=== PATIENT | male | born 1980 | race Caucasian/White ===

== ENCOUNTER 2019-01-13 20:33 | Inpatient (IN) | payer BC ==
[2019-01-13] MEDS ORDERED: KETOROLAC 30 MG/ML 1 ML VIAL IVP STA (21:14)
[2019-01-13] MEDS ORDERED: ONDANSETRON 4 MG/2 ML VIAL IVP STA (21:15)
--- NOTE | 2019-01-13 21:18 | ED ---
Abdominal Pain HPI - General Chief Complaint: Abdominal Pain Stated Complaint: Abd Pain Time Seen by Provider: 01/13/19 21:01 Source: patient Mode of arrival: ambulatory Limitations: no limitations - History of Present Illness Initial Comments: Patient is a 38-year-old male presenting to emergency Department with abdominal pain. Patient reports he developed sudden onset of pain approximately 6 hours ago in the right flank region and migrated to the right lower quadrant. Patient reports sudden onset of nausea vomiting. Patient reports diarrhea but states that is his baseline due to a cholecystectomy. Patient denies hemoptysis, hematuria, hematochezia or melena. Patient reports the pain is a 5 and colicky in nature. Patient reports the pain is alleviated when sitting up and exacerbated when laying supine and flexing the right hip. Patient denies taking medication to alleviate the symptoms. - Related Data Home Medications Medication Instructions Recorded Confirmed No Known Home Medications 01/13/19 01/13/19 Allergies Allergy/AdvReac Type Severity Reaction Status Date / Time No Known Allergies Allergy Verified 01/13/19 21:41 Review of Systems ROS Statement: Those systems with pertinent positive or pertinent negative responses have been documented in the HPI. ROS Other: All systems not noted in ROS Statement are negative. Past Medical History Past Medical History: No Reported History Past Surgical History: No Surgical Hx Reported Past Psychological History: No Psychological Hx Reported Smoking Status: Current every day smoker Past Alcohol Use History: Daily Past Drug Use History: None Reported General Exam - General Exam Comments Initial Comments: General: Well-developed well-nourished distress HEENT: Normocephalic/atraumatic, PERLL, pharynx erythema, swallowing well, EAC no erythema, no exudates, TM clear, no cervical lymph nodes Neck: Supple, nontender, trachea midline Chest/Lungs: Normal respirations, no signs of respiratory distress clear to auscultation bilaterally no wheezes, rales, rhonchi Cardiac: Regular rate and rhythm, normal S1-S2, no murmurs rubs or gallops Abdomen/GI: Right lower quadrant pain, no guarding, positive bony point tenderness, positive psoas sign, positive obturator sign, positive Rovsing sign, normal bowel sounds, right flank pain. Musculoskeletal: Nontender, full range of motion, no edema, strength equal bi laterally Skin: Warmth, no rashes or lesions, no cyanosis or diaphoresis Neurologic: AAO x 3, CN 2-12 intact, Psychiatric: Mood and affect normal, judgment normal Limitations: no limitations Course Vital Signs 01/13/19 20:49 Temperature 98.3 F Pulse Rate 123 H Respiratory 17 Rate Blood Pressure 164/103 O2 Sat by Pulse 98 Oximetry Medical Decision Making - Medical Decision Making Patient is a 38-year-old male presents emergency Department with abdominal pain. CBC is showing mild leukocytosis. CMP is unremarkable. UA is showing mild hematuria. KUB is unremarkable. CT of abdomen and pelvis with contrast is indicated of an abnormal asymmetric renal enhancement with large nephrographic defect involving the right kidney appearance of which is most suspicious for renal infarction. Pyelonephritis could be a possibility but not clinically related to the urinalysis due to no signs of leukocyte esterase, nitrates or white blood cells. On reevaluation patient reports the pain has increased in severity for which she was given morphine. Dr. Hughes spoke with the admitting physician. Patient will be admitted for further medical management. At this point care will be transferred to Dr. Hughes. - Lab Data Result diagrams: 01/13/19 21:22 01/13/19 21:22 Lab Results 01/13/19 01/13/19 01/13/19 Range/Units 21:22 21:22 21:30 WBC 10.9 H (3.8-10.6) k/uL RBC 5.56 (4.30-5.90) m/uL Hgb 16.4 (13.0-17.5) gm/dL Hct 47.3 (39.0-53.0) % MCV 85.1 (80.0-100.0) fL MCH 29.5 (25.0-35.0) pg MCHC 34.7 (31.0-37.0) g/dL RDW 14.0 (11.5-15.5) % Plt Count 232 (150-450) k/uL Neutrophils % 74 % Lymphocytes % 17 % Monocytes % 5 % Eosinophils % 2 % Basophils % 1 % Neutrophils # 8.0 H (1.3-7.7) k/uL Lymphocytes # 1.9 (1.0-4.8) k/uL Monocytes # 0.5 (0-1.0) k/uL Eosinophils # 0.2 (0-0.7) k/uL Basophils # 0.1 (0-0.2) k/uL Sodium 143 (137-145) mmol/L Potassium 4.1 (3.5-5.1) mmol/L Chloride 108 H (98-107) mmol/L Carbon Dioxide 25 (22-30) mmol/L Anion Gap 10 mmol/L BUN 10 (9-20) mg/dL Creatinine 0.93 (0.66-1.25) mg/dL Est GFR (CKD-EPI)AfAm >90 (>60 ml/min/1.73 sqM) Est GFR (CKD-EPI)NonAf >90 (>60 ml/min/1.73 sqM) Glucose 113 H (74-99) mg/dL Calcium 9.6 (8.4-10.2) mg/dL Total Bilirubin 0.4 (0.2-1.3) mg/dL AST 38 (17-59) U/L ALT 54 (21-72) U/L Alkaline Phosphatase 57 (38-126) U/L Total Protein 8.3 H (6.3-8.2) g/dL Albumin 5.0 (3.5-5.0) g/dL Amylase 71 (30-110) U/L Lipase 62 (23-300) U/L Urine Color Yellow Urine Appearance Clear (Clear) Urine pH 5.5 (5.0-8.0) Ur Specific Bath 1.024 (1.001-1.035) Urine Protein 1+ H (Negative) Urine Glucose (UA) Negative (Negative) Urine Ketones Trace H (Negative) Urine Blood Moderate H (Negative) Urine Nitrite Negative (Negative) Urine Bilirubin Negative (Negative) Urine Urobilinogen 2.0 (<2.0) mg/dL Ur Leukocyte Esterase Negative (Negative) Urine RBC 7 H (0-5) /hpf Urine WBC 2 (0-5) /hpf Urine Mucus Occasional H (None) /hpf Disposition Clinical Impression: Abdominal pain Disposition: ADMITTED IP TO THIS [facility] Condition: Stable Instructions (If sedation given, give patient instructions): Abdominal Pain (ED) Additional Instructions: Patient will be admitted for further management. Is patient prescribed a controlled substance at d/c from ED?: No Referrals: Shanice Jean DO [Primary Care Provider] - 1-2 days Time of Disposition: 00:15
[2019-01-13 21:38] LABS: Basophils # (A) 0.1 k/uL (0-0.2); Basophils % (A) 1 %; Eosinophils # (A) 0.2 k/uL (0-0.7); Eosinophils % (A) 2 %; HCT 47.3 % (39.0-53.0); HGB 16.4 gm/dL (13.0-17.5); Lymphocytes # (A) 1.9 k/uL (1.0-4.8); Lymphocytes % (A) 17 %; MCH 29.5 pg (25.0-35.0); MCHC 34.7 g/dL (31.0-37.0); MCV 85.1 fL (80.0-100.0); Mean Platelet Volume 8.2; Monocytes # (A) 0.5 k/uL (0-1.0); Monocytes % (A) 5 %; Neutrophils % (A) 74 %; Platelet Count 232 k/uL (150-450); RBC 5.56 m/uL (4.30-5.90); WBC 10.9 k/uL (3.8-10.6)
[2019-01-13 21:41] LABS: ALT 54 U/L (21-72); AST 38 U/L (17-59); African American GFR (CKD) >90 (>60 ml/min/1.73 sqM); Alkaline Phosphatase 57 U/L (38-126); Amylase 71 U/L (30-110); Anion Gap 10 mmol/L; Blood Urea Nitrogen 10 mg/dL (9-20); Calcium 9.6 mg/dL (8.4-10.2); Carbon Dioxide 25 mmol/L (22-30); Chloride 108 mmol/L (98-107); Glucose 113 mg/dL (74-99); Lipase 62 U/L (23-300); Potassium 4.1 mmol/L (3.5-5.1); Sodium 143 mmol/L (137-145); Total Bilirubin 0.4 mg/dL (0.2-1.3); Total Protein 8.3 g/dL (6.3-8.2)
--- NOTE | 2019-01-13 21:43 | XR ---
EXAMINATION TYPE: XR KUB DATE OF EXAM: 01/13/2019 COMPARISON: NONE HISTORY: Abdominal pain TECHNIQUE: 2 views FINDINGS: There are clips from cholecystectomy. Bowel gas pattern is normal. There is no sign of inte stinal obstruction or pneumoperitoneum. Fecal pattern is normal. Lung bases are clear. There are no p athologic calcifications over the kidneys. IMPRESSION: Nonacute abdomen.
[2019-01-13 21:46] LABS: Appearance,Urine Clear (Clear); Bilirubin,Urine Negative (Negative); Blood,Urine Moderate (Negative); Color,Urine Yellow; Glucose,Urine (UA) Negative (Negative); Ketones,Urine Trace (Negative); Leukocyte Esterase,Urine Negative (Negative); Mucus,Urine Occasional /hpf; Nitrite,Urine Negative (Negative); PH, Urine 5.5 (5.0-8.0); Protein,Urine 1+ (Negative); RBC,Urine 7 /hpf (0-5); Specific Gravity,Urine 1.024 (1.001-1.035); WBC,Urine 2 /hpf (0-5)
--- NOTE | 2019-01-13 23:27 | CT ---
EXAM: CT Abdomen and Pelvis With Intravenous Contrast CLINICAL HISTORY: ITS.REASON CT Reason: Pain TECHNIQUE: Axial computed tomography images of the abdomen and pelvis with intravenous contrast. CTDI is 15.4 mGy and DLP is 709.9 mGy-cm. This CT exam was performed using one or more of the following dose reduction techniques: automated exposure control, adjustment of the mA and/or kV according to patient size, and/or use of iterative reconstruction technique. COMPARISON: Abdominal radiographs 01/13/2019 FINDINGS: Lung bases: Imaged lung bases are clear. ABDOMEN: Liver: Mild hepatomegaly and evidence of hepatic fatty infiltration. Gallbladder and bile ducts: Status post previous cholecystectomy. No evidence of biliary dilatation. Pancreas: Pancreas is unremarkable. Spleen: Spleen is unremarkable. Adrenals: No adrenal masses. Kidneys and ureters: Kidneys are of normal size bilaterally. Abnormal asymmetric right renal enhancement. Large nephrographic defect involves right kidney including upper pole, mid zone and inferior pole having wedgelike configuration and extending to renal cortex. Left kidney demonstrates normal enhancement. No significant perinephric stranding. No evidence of renal calculi or hydronephrosis. Stomach and bowel: No evidence of bowel obstruction or pneumoperitoneum. Scattered colonic diverticulosis. Colon is nondistended limiting colonic dilation. PELVIS: Appendix: Normal-appearing appendix identified in the right lower quadrant. Bladder: Urinary bladder is nondistended. No bladder calculi. Reproductive: Unremarkable as visualized. ABDOMEN and PELVIS: Intraperitoneal space: See above. Bones/joints: No acute bony abnormalities. Vasculature: No abdominal aortic aneurysm. Lymph nodes: No evidence of lymphadenopathy. IMPRESSION: Abnormal asymmetric renal enhancement with large nephrographic defect involving right kidney appearance of which most suspicious for renal infarction. Pyelonephritis would be differential possibility. Clinical correlation with urinalysis recommended. No evidence of appendicitis. Mild hepatomegaly and hepatic fatty infiltration. Previous cholecystectomy. <MYCVCSECTION> Critical Value Communications 01/13/19 23:27 Call Doctor Regarding Other, called Dr. Hughes on 01/13 23:27 (-04:00)
[2019-01-13] MEDS ORDERED: HEPARIN SODIUM,PORCINE 5,000 UNIT/ML 1 ML VIAL IV PRN (23:28)
[2019-01-13] MEDS ORDERED: HEPARIN SODIUM,PORCINE 10,000 UNIT/ML 1 ML VIAL IV ONE (23:28)
[2019-01-13] MEDS ORDERED: MORPHINE SULFATE 4 MG/ML SYRINGE IVP STA (23:59)
[2019-01-14] LABS: INR 0.9 (<1.2); Partial Thromboplastin Time 21.9 sec (22.0-30.0)
[2019-01-14] MEDS: HEPARIN SOD,PORK IN 0.45% NACL 25,000 UNIT in 0.45% NACL 1 250ML.BAG IV SCH ×2 (00:15→17:12)
[2019-01-14] MEDS ORDERED: NALOXONE 0.4 MG/ML 1 ML VIAL IV PRN (02:35)
[2019-01-14] MEDS: oxyCODONE-APAP 5-325MG 1 EACH TAB PO PRN ×5 (03:21→21:07)
[2019-01-14] MEDS: ONDANSETRON 4 MG/2 ML VIAL IVP PRN ×3 (03:22→19:22)
[2019-01-14] MEDS: MORPHINE SULFATE 4 MG/ML SYRINGE IV PRN ×4 (04:37→19:21)
[2019-01-14 05:45] LABS: Basophils # (A) 0.1 k/uL (0-0.2); Basophils % (A) 1 %; Eosinophils # (A) 0.2 k/uL (0-0.7); Eosinophils % (A) 1 %; HCT 46.7 % (39.0-53.0); Lymphocytes # (A) 1.9 k/uL (1.0-4.8); Lymphocytes % (A) 15 %; MCH 28.2 pg (25.0-35.0); MCHC 32.2 g/dL (31.0-37.0); MCV 87.6 fL (80.0-100.0); Mean Platelet Volume 7.7; Monocytes # (A) 0.7 k/uL (0-1.0); Monocytes % (A) 5 %; Neutrophils % (A) 77 %; Platelet Count 204 k/uL (150-450); RBC 5.33 m/uL (4.30-5.90); RDW 12.7 % (11.5-15.5)
[2019-01-14] MEDS ORDERED: PROMETHAZINE 25 MG TAB PO PRN (09:21)
--- NOTE | 2019-01-14 10:20 | P.HPIM ---
History of Present Illness H&P Date: 01/14/19 Chief Complaint: Flank pain Monroe Jean is a 38 yo M with PMH significant for previous hepatic infarction who presented to [facility] ED after sudden sharp R flank pain yesterday around 6 pm. He reports it migrated to his RLQ and was accompanied by nausea and vomiting. Pain started as 10/10 and was down to 5/10 by the time he got to the ED. He denies hematuria or dysuria, melena, hematochezia or constipation. In the ED he was tachycardic and hypertensive with WBC 10 and urine protein and RBC positive. CT abd/pelvis demonstrated significant R kidney enhancement concerning for renal infarction. Pt states that approx 3 years ago shortly after a cholecystectomy he had RUQ pain and was told he suffered a hepatic infarction. He does not remember following up about this as an outpatient and does not have a hypercoagulable state that he knows of. He does report 1 PPD smoking history and father of a heart attack. He does not take any medications. Review of Systems All systems: negative Constitutional: Reports malaise, Denies chills, Denies fever Eyes: denies blurred vision, denies pain Ears, nose, mouth and throat: Denies headache, Denies sore throat Cardiovascular: Denies chest pain, Denies shortness of breath Respiratory: Denies cough Gastrointestinal: Denies abdominal pain, Denies diarrhea, Denies hematochezia, Denies nausea, Denies vomiting Genitourinary: Reports flank pain, Denies dysuria, Denies hematuria, Denies urinary frequency Musculoskeletal: Denies myalgias Integumentary: Denies pruritus, Denies rash Neurological: Denies numbness, Denies weakness Psychiatric: Denies anxiety, Denies depression Endocrine: Denies fatigue, Denies weight change Past Medical History Past Medical History: No Reported History History of Any Multi-Drug Resistant Organisms: None Reported Past Surgical History: Cholecystectomy, Hernia Repair Additional Past Surgical History / Comment(s): 2X Hernia repair and cholecystectomy, liver infarction Past Anesthesia/Blood Transfusion Reactions: No Reported Reaction Past Psychological History: No Psychological Hx Reported Smoking Status: Current every day smoker Past Alcohol Use History: Daily Past Drug Use History: None Reported Medications and Allergies Home Medications Medication Instructions Recorded Confirmed Type No Known Home Medications 01/13/19 01/13/19 History Allergies Allergy/AdvReac Type Severity Reaction Status Date / Time No Known Allergies Allergy Verified 01/13/19 21:41 Physical Exam Vitals: Vital Signs Temp Pulse Pulse Pulse Resp BP BP 01/14/19 06:48 97.7 F 67 15 164/96 01/14/19 04:30 61 176/89 01/14/19 04:16 97.9 F 57 L 17 01/14/19 04:10 57 L 17 168/103 01/14/19 03:00 74 18 167/116 01/14/19 01:00 78 18 176/116 01/13/19 20:49 98.3 F 123 H 17 164/103 Pulse Ox 01/14/19 06:48 98 01/14/19 04:30 01/14/19 04:16 97 01/14/19 04:10 97 01/14/19 03:00 100 01/14/19 01:00 100 01/13/19 20:49 98 Intake and Output 01/13/19 01/14/19 01/14/19 22:59 06:59 14:59 Intake Total 92.83 Balance 92.83 Intake: Intake, IV Titration 92.83 Amount Heparin Sod,Pork in 0.45% 92.83 NaCl 25,000 unit In 0.45 % NaCl 1 250ml.bag @ 18 UNITS/KG/HR 14.696 mls/hr IV .Q17H1M [facility] Rx#: [id number] Other: Voiding Method Toilet Weight 81.647 kg General: well nourished, well developed, NAD. Vitals reviewed Eyes: PERRL, EOMI, conjunctiva normal HENT: normocephalic, mucus membranes moist Neck: supple, no JVD Lungs: normal respiratory effort, no wheezes or rales CV: Regular rate and rhythm, no murmur. Peripheral pulses 2+ Abdomen: soft, nondistended. Diffusely TTP. No organomegaly Lymph: no cervical or axillary LAD Skin: warm and dry Neuro: A&Ox3, normal mood and affect Results CBC & Chem 7: 01/14/19 05:31 01/13/19 21:22 Labs: Abnormal Lab Results - Last 24 Hours (Table) 01/13/19 01/13/19 01/13/19 Range/Units 21:20 21:22 21:22 WBC 10.9 H (3.8-10.6) k/uL Neutrophils # 8.0 H (1.3-7.7) k/uL APTT 21.9 L (22.0-30.0) sec Chloride 108 H (98-107) mmol/L Glucose 113 H (74-99) mg/dL Total Protein 8.3 H (6.3-8.2) g/dL Urine Protein (Negative) Urine Ketones (Negative) Urine Blood (Negative) Urine RBC (0-5) /hpf Urine Mucus (None) /hpf 01/13/19 01/14/19 01/14/19 Range/Units 21:30 05:31 05:31 WBC 13.0 H (3.8-10.6) k/uL Neutrophils # 10.0 H (1.3-7.7) k/uL APTT 95.9 H (22.0-30.0) sec Chloride (98-107) mmol/L Glucose (74-99) mg/dL Total Protein (6.3-8.2) g/dL Urine Protein 1+ H (Negative) Urine Ketones Trace H (Negative) Urine Blood Moderate H (Negative) Urine RBC 7 H (0-5) /hpf Urine Mucus Occasional H (None) /hpf Thrombosis Risk Factor Assmnt - DVT/VTE Prophylaxis DVT/VTE Prophylaxis: Pharmacologic Prophylaxis ordered - Choose All That Apply Each Factor Represents 1 point: Medical pt on bed rest, Obesity (BMI >25) Other Risk Factors: No Other congenital or acquired thrombophilia - If yes, enter type in comment: No Thrombosis Risk Factor Assessment Total Risk Factor Score: 2 Thrombosis Risk Factor Assessment Level: Low Risk Assessment and Plan (1) Renal infarction Current Visit: Yes Status: Acute Code(s): N28.0 - ISCHEMIA AND INFARCTION OF KIDNEY SNOMED Code(s): 57461140 (2) Acute flank pain Current Visit: Yes Status: Acute Code(s): R10.9 - UNSPECIFIED ABDOMINAL PAIN SNOMED Code(s): 926167590 (3) Hematuria Current Visit: Yes Status: Acute Code(s): R31.9 - HEMATURIA, UNSPECIFIED SNOMED Code(s): 39150379 Plan: 1. Renal infarction. With history of possible previous hepatic infarction. He matology and vascular surgery consulted and hypercoagulable workup started. Pain control. Continue heparin gtt 2. Hematuria. Secondary to above. Continue to monitor
--- NOTE | 2019-01-14 14:04 | P.CONS ---
History of Present Illness - Reason for Consult Consult date: 01/14/19 renal infarct Requesting physician: Belkis Hughes - Chief Complaint right flank/back pain - History of Present Illness Mr. Barrow is a very pleasant 38-year-old male with a relatively benign medical history other than hernia repair 2, no postoperative complications. He did have a cholecystectomy 3 years ago, with a post operative liver infarct, he denied any treatment for the same at that time. He denies any other workup. Patient is a 1 pack per day smoker, denies steroid or hormone usage, there is no family history of blood clots, his father was positive for atherosclerosis. Patient states a sudden onset pain in the right flank area last evening, it was persistent, unbearable, it had eased up slightly in route to hospital, he thinks he may have had hematuria noted thinks about, no fevers, chills, nausea or vomiting, acute change in bowel or bladder habits, swelling, other bleeding to report, weight loss or other pain. Review of Systems 14 point review of systems is negative except as stated in HPI Past Medical History Past Medical History: No Reported History History of Any Multi-Drug Resistant Organisms: None Reported Past Surgical History: Cholecystectomy, Hernia Repair Additional Past Surgical History / Comment(s): 2X Hernia repair and cholecystectomy, liver infarction Past Anesthesia/Blood Transfusion Reactions: No Reported Reaction Past Psychological History: No Psychological Hx Reported Smoking Status: Current every day smoker (1ppd) Past Alcohol Use History: Daily Past Drug Use History: None Reported Medications and Allergies Home Medications Medication Instructions Recorded Confirmed Type No Known Home Medications 01/13/19 01/13/19 History Allergies Allergy/AdvReac Type Severity Reaction Status Date / Time No Known Allergies Allergy Verified 01/13/19 21:41 Physical Exam Vitals: Vital Signs Temp Pulse Pulse Pulse Resp BP BP 01/14/19 06:48 97.7 F 67 15 164/96 01/14/19 04:30 61 176/89 01/14/19 04:16 97.9 F 57 L 17 01/14/19 04:10 57 L 17 168/103 01/14/19 03:00 74 18 167/116 01/14/19 01:00 78 18 176/116 01/13/19 20:49 98.3 F 123 H 17 164/103 Pulse Ox 01/14/19 06:48 98 01/14/19 04:30 01/14/19 04:16 97 01/14/19 04:10 97 01/14/19 03:00 100 01/14/19 01:00 100 01/13/19 20:49 98 Intake and Output 01/13/19 01/14/19 01/14/19 22:59 06:59 14:59 Intake Total 92.83 Balance 92.83 Intake: Intake, IV Titration 92.83 Amount Heparin Sod,Pork in 0.45% 92.83 NaCl 25,000 unit In 0.45 % NaCl 1 250ml.bag @ 18 UNITS/KG/HR 14.696 mls/hr IV .Q17H1M [facility] Rx#: [id number] Other: Voiding Method Toilet Weight 81.647 kg - Constitutional General appearance: average body habitus, cooperative, mild distress - EENT Eyes: anicteric sclerae, EOMI, normal appearance ENT: hearing grossly normal, normal oropharynx - Neck Neck: no lymphadenopathy - Respiratory Respiratory: bilateral: CTA - Cardiovascular Rhythm: regular Heart sounds: normal: S1, S2 Abnormal Heart Sounds: no systolic murmur, no diastolic murmur, no rub, no S3 Gallop, no S4 Gallop, no click, no other leg Peripheral Edema: bilateral: None - Gastrointestinal lateral to lower spine on the right pain with palpation, no palpable mass General gastrointestinal: normal bowel sounds, soft, tenderness - Integumentary Integumentary: normal - Neurologic Neurologic: CNII-XII intact - Musculoskeletal Musculoskeletal: strength equal bilaterally - Psychiatric Psychiatric: A&O x's 3, appropriate affect, intact judgment & insight Results CBC & Chem 7: 01/14/19 05:31 01/13/19 21:22 Labs: Abnormal Lab Results - Last 24 Hours (Table) 01/13/19 01/13/19 01/13/19 Range/Units 21:20 21:22 21:22 WBC 10.9 H (3.8-10.6) k/uL Neutrophils # 8.0 H (1.3-7.7) k/uL APTT 21.9 L (22.0-30.0) sec Chloride 108 H (98-107) mmol/L Glucose 113 H (74-99) mg/dL Total Protein 8.3 H (6.3-8.2) g/dL Urine Protein (Negative) Urine Ketones (Negative) Urine Blood (Negative) Urine RBC (0-5) /hpf Urine Mucus (None) /hpf 01/13/19 01/14/19 01/14/19 Range/Units 21:30 05:31 05:31 WBC 13.0 H (3.8-10.6) k/uL Neutrophils # 10.0 H (1.3-7.7) k/uL APTT 95.9 H (22.0-30.0) sec Chloride (98-107) mmol/L Glucose (74-99) mg/dL Total Protein (6.3-8.2) g/dL Urine Protein 1+ H (Negative) Urine Ketones Trace H (Negative) Urine Blood Moderate H (Negative) Urine RBC 7 H (0-5) /hpf Urine Mucus Occasional H (None) /hpf 01/14/19 Range/Units 12:25 WBC (3.8-10.6) k/uL Neutrophils # (1.3-7.7) k/uL APTT 56.5 H (22.0-30.0) sec Chloride (98-107) mmol/L Glucose (74-99) mg/dL Total Protein (6.3-8.2) g/dL Urine Protein (Negative) Urine Ketones (Negative) Urine Blood (Negative) Urine RBC (0-5) /hpf Urine Mucus (None) /hpf Abdominal x-ray: report reviewed CT scan - abdomen: report reviewed CT scan - pelvis: report reviewed Assessment and Plan (1) Renal infarction Narrative/Plan: Dr. Hurd explained to patient and his family presentation of a hypercoagulable state with a renal infarct is certainly uncommon. Hypercoaguable states typica lly present with venous thrombosis/emboli. Recommendation is to rule out a mechanical cause for renal infarct. Pain was of sudden onset, which could be suggestive of a ruptured plaque event. Vasculature abnormality is another differential. Patient lacks infectious-type symptoms so, less likely. Labs have been ordered to evaluate vasculitis and arterial disease. Consult was placed for Cardiology, case was discussed with SURGEON CHIEF. Vascular already consulted for their evaluation and opinion. Much of the hypercoagulable workup has been ordered by the Primary Physician. Many of those labs will take 1-2 weeks to return. Would recommend follow-up with Hematology for interpretation of the same as there can be false positive results in the setting of new clot and medications for treatment. Recommendation is for a blood thinner, patient is currently on heparin drip. Baby aspirin for arterial renal infarct. Current Visit: Yes Status: Acute Priority: High Code(s): N28.0 - ISCHEMIA AND INFARCTION OF KIDNEY SNOMED Code(s): 68489438 (2) Acute flank pain Narrative/Plan: Currently on MS IVP for pain. Titrate as needed Meds to prevent narcotic induced constipation Current Visit: Yes Status: Acute Priority: High Code(s): R10.9 - UNSPECIFIED ABDOMINAL PAIN SNOMED Code(s): 269867812
--- NOTE | 2019-01-14 15:47 | US ---
EXAMINATION TYPE: US venous doppler duplex LE DATE OF EXAM: 01/14/2019 2:27 PM COMPARISON: NONE CLINICAL HISTORY: renal infarct. Poss paradoxical embolus. Renal infarct, pt states no known prior DV T, currently on Heparin drip SIDE PERFORMED: Bilateral TECHNIQUE: The lower extremity deep venous system is examined utilizing real time linear array sonog baltazar with graded compression, doppler sonography and color-flow sonography. VESSELS IMAGED: External Iliac Vein (EIV) Common Femoral Vein Deep Femoral Vein Greater Saphenous Vein * Femoral Vein Popliteal Vein Small Saphenous Vein * Proximal Calf Veins (* superficial vessels) There is normal flow, compressibility, vascular waveforms. Right Leg: Negative for DVT Left Leg: Negative for DVT IMPRESSION: No evident deep venous thrombosis at or above the knees.
--- NOTE | 2019-01-14 19:12 | P.GSCN ---
History of Present Illness Consult date: 01/14/19 Reason for Consult: Right renal infarct Requesting physician: Reed Hyman History of present illness: 30-year-old gentleman with past medical history of previous hepatic infarcts presented to the emergency department after sudden right sharp flank pain onset around 6 PM. The pain he describes extended into his right lower quadrant and he became nauseous and had vomiting. He states the pain was noticed first at [facility] and he went emergently to the urgent care. Upon evaluation of the urgent care he was then sent to the hospital for further evaluation. He states since he's been at the hospital he was initiated on heparin drip and the pain has been held at bay without any worsening symptoms. He denies any hematuria, dysuria, melena, hematochezia or constipation. He still has some abdominal discomfort in the right lower quadrant. He denies any nausea, vomiting, chest pain or shortness of breath at this time. He does admit to smoking 1 pack a day. His previous infarction was after a gallbladder surgery and he was not worked up any further for hypercoagulable state at that time. Review of Systems All systems: negative (What is mentioned in the HPI past medical history) Past Medical History Past Medical History: No Reported History Additional Past Medical History / Comment(s): Hepatic infarction History of Any Multi-Drug Resistant Organisms: None Reported Past Surgical History: Cholecystectomy, Hernia Repair Additional Past Surgical History / Comment(s): 2X Hernia repair and cholecystectomy, liver infarction Past Anesthesia/Blood Transfusion Reactions: No Reported Reaction Past Psychological History: No Psychological Hx Reported Smoking Status: Current every day smoker (1ppd) Past Alcohol Use History: Daily Past Drug Use History: None Reported Medications and Allergies Home Medications Medication Instructions Recorded Confirmed Type No Known Home Medications 01/13/19 01/13/19 History Allergies Allergy/AdvReac Type Severity Reaction Status Date / Time No Known Allergies Allergy Verified 01/13/19 21:41 Surgical - Exam Vital Signs Temp Pulse Resp BP Pulse Ox 98.3 F 123 H 17 164/103 98 01/13/19 20:49 01/13/19 20:49 01/13/19 20:49 01/13/19 20:49 01/13/19 20:49 - General well developed, well nourished, no distress - Eyes PERRL, normal ocular movement - ENT normal pinna, normal nares - Neck no masses - Respiratory normal expansion - Cardiovascular Rhythm: regular - Abdomen Abdomen: soft, tender, no masses, no guarding, no rebound - Neurologic normal coordination, normal sensation - Musculoskeletal normal gait - Psychiatric oriented to time, oriented to person, oriented to place Results - Labs 01/14/19 05:31 01/13/19 21:22 Abnormal Lab Results - Last 24 Hours (Table) 01/13/19 01/13/19 01/13/19 Range/Units 21:20 21:22 21:22 WBC 10.9 H (3.8-10.6) k/uL Neutrophils # 8.0 H (1.3-7.7) k/uL APTT 21.9 L (22.0-30.0) sec Chloride 108 H (98-107) mmol/L Glucose 113 H (74-99) mg/dL Total Protein 8.3 H (6.3-8.2) g/dL Urine Protein (Negative) Urine Ketones (Negative) Urine Blood (Negative) Urine RBC (0-5) /hpf Urine Mucus (None) /hpf 01/13/19 01/14/19 01/14/19 Range/Units 21:30 05:31 05:31 WBC 13.0 H (3.8-10.6) k/uL Neutrophils # 10.0 H (1.3-7.7) k/uL APTT 95.9 H (22.0-30.0) sec Chloride (98-107) mmol/L Glucose (74-99) mg/dL Total Protein (6.3-8.2) g/dL Urine Protein 1+ H (Negative) Urine Ketones Trace H (Negative) Urine Blood Moderate H (Negative) Urine RBC 7 H (0-5) /hpf Urine Mucus Occasional H (None) /hpf 01/14/19 01/14/19 Range/Units 12:25 17:34 WBC (3.8-10.6) k/uL Neutrophils # (1.3-7.7) k/uL APTT 56.5 H 53.4 H (22.0-30.0) sec Chloride (98-107) mmol/L Glucose (74-99) mg/dL Total Protein (6.3-8.2) g/dL Urine Protein (Negative) Urine Ketones (Negative) Urine Blood (Negative) Urine RBC (0-5) /hpf Urine Mucus (None) /hpf Diabetes panel 01/13/19 Range/Units 21:22 Sodium 143 (137-145) mmol/L Potassium 4.1 (3.5-5.1) mmol/L Chloride 108 H (98-107) mmol/L Carbon Dioxide 25 (22-30) mmol/L BUN 10 (9-20) mg/dL Creatinine 0.93 (0.66-1.25) mg/dL Glucose 113 H (74-99) mg/dL Calcium 9.6 (8.4-10.2) mg/dL AST 38 (17-59) U/L ALT 54 (21-72) U/L Alkaline Phosphatase 57 (38-126) U/L Total Protein 8.3 H (6.3-8.2) g/dL Albumin 5.0 (3.5-5.0) g/dL Calcium panel 01/13/19 Range/Units 21:22 Calcium 9.6 (8.4-10.2) mg/dL Albumin 5.0 (3.5-5.0) g/dL Pituitary panel 01/13/19 Range/Units 21:22 Sodium 143 (137-145) mmol/L Potassium 4.1 (3.5-5.1) mmol/L Chloride 108 H (98-107) mmol/L Carbon Dioxide 25 (22-30) mmol/L BUN 10 (9-20) mg/dL Creatinine 0.93 (0.66-1.25) mg/dL Glucose 113 H (74-99) mg/dL Calcium 9.6 (8.4-10.2) mg/dL Adrenal panel 01/13/19 Range/Units 21:22 Sodium 143 (137-145) mmol/L Potassium 4.1 (3.5-5.1) mmol/L Chloride 108 H (98-107) mmol/L Carbon Dioxide 25 (22-30) mmol/L BUN 10 (9-20) mg/dL Creatinine 0.93 (0.66-1.25) mg/dL Glucose 113 H (74-99) mg/dL Calcium 9.6 (8.4-10.2) mg/dL Total Bilirubin 0.4 (0.2-1.3) mg/dL AST 38 (17-59) U/L ALT 54 (21-72) U/L Alkaline Phosphatase 57 (38-126) U/L Total Protein 8.3 H (6.3-8.2) g/dL Albumin 5.0 (3.5-5.0) g/dL - Imaging CT scan - abdomen: report reviewed, image reviewed Assessment and Plan Assessment: #1 acute right renal infarction with unknown etiology #2 right flank pain secondary to #1 #3 history of hepatic infarction Plan: I reviewed CT abdomen and pelvis with contrast with the patient in full detail. At this time I would recommend either a renal artery ultrasound or dedicated CT angiogram of the abdomen and pelvis for further delineation of the infarction. Due to the timeframe of the infarction as well as the normal lab values for his creatinine and renal function at this time I do not believe there is any benefit for catheter directed thrombolytic lysis. I would continue his anticoagulation and transitioned to oral anticoagulation upon discharge. I do agree with hype rcoagulable state and workup. Thank you for allowing me to participate in your patient's care.
[2019-01-14] MEDS: SODIUM CHLORIDE 0.9% 1,000 ML IV SCH (19:42)
[2019-01-15 00:10] LABS: Cardiolipin Ab IgA Interp NEGATIVE (NEGATIVE); Cardiolipin IgA Antibody <0.5 U/mL
[2019-01-15 00:11] LABS: Cardiolipin Ab IgG Interp NEGATIVE (NEGATIVE)
[2019-01-15 00:12] LABS: Cardiolipin Ab IgM Interp NEGATIVE (NEGATIVE); Cardiolipin IgM Antibody 0.2 U/mL
[2019-01-15] MEDS: SODIUM CHLORIDE 0.9% 1,000 ML IV SCH ×3 (03:21→20:27)
[2019-01-15] MEDS: MORPHINE SULFATE 4 MG/ML SYRINGE IV PRN ×4 (03:52→23:43)
[2019-01-15] MEDS: ASPIRIN 81 MG PO SCH (07:38)
[2019-01-15] MEDS: oxyCODONE-APAP 5-325MG 1 EACH TAB PO PRN ×2 (07:38→13:32)
[2019-01-15 07:39] LABS: Basophils # (A) 0.1 k/uL (0-0.2); Basophils % (A) 0 %; Eosinophils # (A) 0.1 k/uL (0-0.7); Eosinophils % (A) 1 %; HCT 43.4 % (39.0-53.0); HGB 14.8 gm/dL (13.0-17.5); Lymphocytes # (A) 2.1 k/uL (1.0-4.8); Lymphocytes % (A) 13 %; MCH 29.7 pg (25.0-35.0); MCHC 34.1 g/dL (31.0-37.0); MCV 87.1 fL (80.0-100.0); Mean Platelet Volume 8.7; Monocytes % (A) 6 %; Neutrophils # (A) 12.3 k/uL (1.3-7.7); Neutrophils % (A) 78 %; Platelet Count 170 k/uL (150-450); RBC 4.98 m/uL (4.30-5.90); RDW 14.7 % (11.5-15.5); WBC 15.8 k/uL (3.8-10.6)
--- NOTE | 2019-01-15 08:38 | P.PN ---
Progress Note - Text Progress Note Date: 01/15/19 MTHFR gene mutation order cancelled. This is no longer considered a hypercoag condition, and testing is NOT recommended per current [facility] guidelines.
[2019-01-15 11:38] LABS: Protein S Antigen 95 % (50 - 140)
--- NOTE | 2019-01-15 12:42 | CT ---
EXAMINATION TYPE: CT angio abdomen pelvis DATE OF EXAM: 01/15/2019 COMPARISON: 01/13/2019 HISTORY: Right renal artery infarct CT DLP: 971 mGycm CONTRAST: CTA thoracic and abdominal aorta with 3-D reconstruction is performed without Oral Contrast and witho ut and with IV Contrast, patient injected with 100 mL of Isovue 370. Contrast CTA of the abdominal aorta was performed from the lung bases through the base of the pelvis . 3-D reconstruction imaging obtained at a separate workstation. CONTRAST CT ABDOMEN AND PELVIS Lung bases: Basilar atelectasis noted. ABDOMINAL AORTA: No evidence for abdominal aortic aneurysm. No dissection. Iliac vessels are symmet roe and patent. LIVER/GB-there is evidence of hepatomegaly with underlying hepatic steatosis. Cholecystectomy clips a re in place. No space-occupying lesions identified. PANCREAS- No significant abnormality is seen. SPLEEN- No significant abnormality is seen. ADRENALS-progression of the large right-sided renal perfusion abnormality could reflect infarct. Ankit tional possibilities include that of pyelonephritis as well as traumatic contusion if there is such a history. Correlate clinically and correlate with urinalysis. KIDNEYS/BLADDER- No significant abnormality is seen. BOWEL- No Significant abnormality GENITAL ORGANS: No gross abnormality seen. LYMPH NODES- No greater than 1cm abdominal or pelvic lymph nodes areappreciated. OSSEOUS STRUCTURES- No significant abnormality is seen. OTHER- No significant abnormality is seen. IMPRESSION- 1.progression of the large right-sided renal perfusion abnormality could reflect infarct. Additional possibilities include that of pyelonephritis as well as traumatic contusion if there is such a histor y. Correlate clinically and correlate with urinalysis. 2. No distinct abnormality of the aorta or renal arteries on this examination.
[2019-01-15 12:57] LABS: APTT 100 Sec(s) (<43); APTT 1:1 Mix 64 Sec(s) (<43); Dilute Russell Viper Venom 37 Sec(s) (<44); Hexagonal Phase Neutralization Negative (Negative)
[2019-01-15] MEDS: HEPARIN SOD,PORK IN 0.45% NACL 25,000 UNIT in 0.45% NACL 1 250ML.BAG IV SCH (13:34)
--- NOTE | 2019-01-15 14:19 | US ---
EXAMINATION TYPE: US renal artery duplex complete DATE OF EXAM: 01/15/2019 COMPARISON: CT CLINICAL HISTORY: renal infarct. Pt has known right renal infarct per CT Very gassy pt in intense pain and unable to hold breath very well/ somewhat difficult exam MEASUREMENTS: RENAL SIZE: Rt Kidney: 10.2 x 4.4 x 4.9 cm Lt Kidney: 10.9 x 5.5 x 5.4 cm RESISTANCE INDEX Right: 0.6 Left: 0.6 RA/AO RATIO (< 3.5 ) Right: 1.2 Left: 1.2 RA VELOCITY ( < 180 cm/s) Right: 160 Left: 160 No evidence of significant renal artery stenosis Please note that perfusion was visualized to be better within left kidney than right IMPRESSION: 1. Renal artery stenosis based on velocity and ratio measurements is not present. However, asymmetry of the vascular flow is evident with better flow on the left than in the right.
[2019-01-15 15:05] LABS: C-ANCA <1:20 Titer (<1:20); P-ANCA <1:20 Titer (<1:20)
--- NOTE | 2019-01-15 15:30 | P.CRDCN ---
History of Present Illness History of present illness: This is a pleasant 38-year-old male past medical history significant for hypertension and chronic nicotine dependence. He presented to the hospital with symptoms of acute onset of right sided abdominal discomfort found to have an acute right renal infarct. Patient also has a history of a hepatic infarct after cholecystectomy in the past. 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 He states his father has a history of atherosclerotic coronary artery disease prematurely. He denies ever having symptoms of chest discomfort, shortness of breath, palpitations, dizziness or unexplained diaphoresis. Currently maintained on a heparin infusion. Diagnostic imaging reports reviewed revealing right renal infarct with no evidence of renal artery stenosis. At the time of my exam: CONSTITUTIONAL: Denies fever. Denies chills. EYES: Denies blurred vision. Denies vision changes. Denies eye pain. EARS, NOSE, MOUTH & THROAT: Denies headache. Denies sore throat. Denies ear pain. CARDIOVASCULAR: Denies chest pain. Denies shortness of breath. Denies orthopnea. Denies PND. Denies palpitations. RESPIRATORY: Denies cough. GASTROINTESTINAL: Complains of abdominal pain. Denies diarrhea. Denies constipation. Denies nausea. Denies vomiting. MUSCULOSKELETAL: Denies myalgias. INTEGUMENTARY: Denies pruitis. Denies rash. NEUROLOGIC: Denies numbness. Denies tingling. Denies weakness. PSYCHIATRIC: Denies anxiety. Denies depression. ENDOCRINE: Denies fatigue. Denies weight change. Denies polydipsia. Denies polyurina. GENITOURINARY: Denies burning, hematuria or urgency with micturation. HEMATOLOGIC: Denies history of anemia. Denies bleeding. Blood pressure 156/92 heart rate 85 GENERAL: This is a 38-year-old male in no apparent distress at the time of my examination. HEENT: Head is atraumatic, normocephalic. Pupils are equal, round. Sclerae anicteric. Conjunctivae are clear. Mucous membranes of the mouth are moist. Neck is supple. There is no jugular venous distention. No carotid bruit is heard. LUNGS: Clear to auscultation no wheezes, rales or rhonchi. No chest wall tenderness is noted on palpation or with deep breathing. HEART: Regular rate and rhythm without murmurs, rubs or gallops. S1 and S2 heard. ABDOMEN: Soft, nontender. Bowel sounds are heard. No organomegaly noted. EXTREMITIES: No evidence of peripheral edema and no calf tenderness noted. VASCULAR: Radial and dorsalis pedis pulses palpated, no evidence of clubbing. NEUROLOGIC: Patient is awake, alert and oriented x3. ASSESSMENT Right renal infarct Hypertension Chronic nicotine dependence PLAN Recommend proceeding with transesophageal echocardiogram to assess cardiac structure and for evidence of emboli. Procedure has been explained to the patient and his in great detail, questions have been answered appropriately and he is agreeable to move forward with the above stated procedure. Apply monitoring and evaluation advisor to assess for atrial fibrillation. Obtain baseline EKG. Further recommendations to follow based upon clinical course. Thank you kindly for this consultation. Nurse Practitioner note has been reviewed, I agree with a documented findings and plan of care. Patient was seen and examined. Past Medical History Past Medical History: No Reported History Additional Past Medical History / Comment(s): Hepatic infarction History of Any Multi-Drug Resistant Organisms: None Reported Past Surgical History: Cholecystectomy, Hernia Repair Additional Past Surgical History / Comment(s): 2X Hernia repair and cholecystectomy, liver infarction Past Anesthesia/Blood Transfusion Reactions: No Reported Reaction Past Psychological History: No Psychological Hx Reported Smoking Status: Current every day smoker (1ppd) Past Alcohol Use History: Daily Past Drug Use History: None Reported Medications and Allergies Home Medications Medication Instructions Recorded Confirmed Type No Known Home Medications 01/13/19 01/13/19 History Allergies Allergy/AdvReac Type Severity Reaction Status Date / Time No Known Allergies Allergy Verified 01/13/19 21:41 Physical Exam Vitals: Vital Signs Temp Pulse Pulse Resp BP Pulse Ox 01/15/19 14:55 85 01/15/19 14:45 99.3 F 85 85 20 156/92 86 L 01/15/19 14:16 99.3 F 81 17 178/96 95 01/15/19 09:23 98.8 F 57 L 20 162/94 97 01/15/19 08:00 20 01/15/19 06:21 100.1 F H 76 20 165/85 01/15/19 00:51 98.9 F 57 L 17 165/80 95 01/14/19 19:17 98.9 F 58 L 14 175/100 96 01/14/19 16:45 52 L 21 01/14/19 16:41 98.1 F 52 L 52 L 21 180/90 Intake and Output 01/15/19 01/15/19 01/15/19 06:59 14:59 22:59 Intake Total 0 235.194 Balance 0 235.194 Intake: Intake, IV Titration 235.194 Amount Heparin Sod,Pork in 0.45% 235.194 NaCl 25,000 unit In 0.45 % NaCl 1 250ml.bag @ 18 UNITS/KG/HR 14.696 mls/hr IV .Q17H1M [facility] Rx#: [id number] Oral 0 Other: Voiding Method Toilet # Voids 1 Results 01/15/19 06:26 01/13/19 21:22 Coagulation 01/14/19 01/15/19 Range/Units 17:34 06:26 APTT 53.4 H 47.4 H (22.0-30.0) sec CBC 01/15/19 Range/Units 06:26 WBC 15.8 H (3.8-10.6) k/uL RBC 4.98 (4.30-5.90) m/uL Hgb 14.8 (13.0-17.5) gm/dL Hct 43.4 (39.0-53.0) % Plt Count 170 (150-450) k/uL Current Medications Generic Name Dose Route Start Last Admin Trade Name Freq PRN Reason Stop Dose Admin Aspirin 81 mg 01/15/19 09:00 01/15/19 07:38 Aspirin PO 81 mg DAILY [facility] Administration Atorvastatin Calcium 10 mg 01/15/19 21:00 Lipitor PO HS [facility] Heparin Sodium (Porcine) 0 unit 01/13/19 23:28 Heparin IV PER PROTOCOL PRN Low PTT Protocol Heparin Sodium/Sodium Chloride 250 mls @ 14.696 mls/hr 01/13/19 23:30 01/15/19 13:34 25,000 unit/ Sodium Chloride IV 16 units/kg/hr .Q17H1M [facility] 13.064 mls/hr Administration Protocol 18 UNITS/KG/HR Sodium Chloride 1,000 mls @ 125 mls/hr 01/14/19 18:30 01/15/19 03:21 Saline 0.9% IV Not Given .Q8H [facility] Morphine Sulfate 4 mg 01/14/19 02:35 01/15/19 11:10 Morphine Sulfate (Inj) IV 4 mg Q4HR PRN Administration Severe Pain Naloxone HCl 0.2 mg 01/14/19 02:35 Narcan IV Q2M PRN Opioid Reversal Ondansetron HCl 4 mg 01/14/19 02:35 01/14/19 19:22 Zofran IVP 4 mg Q8HR PRN Administration Nausea And Vomiting Oxycodone/Acetaminophen 1 each 01/14/19 02:35 01/15/19 13:32 Percocet 5-325 PO 1 each Q4HR PRN Administration Severe Pain Promethazine HCl 25 mg 01/14/19 09:21 01/14/19 11:14 Phenergan PO 25 mg Q6HR PRN Administration Nausea Intake and Output 01/15/19 01/15/19 01/15/19 06:59 14:59 22:59 Intake Total 0 235.194 Balance 0 235.194 Intake: Intake, IV Titration 235.194 Amount Heparin Sod,Pork in 0.45% 235.194 NaCl 25,000 unit In 0.45 % NaCl 1 250ml.bag @ 18 UNITS/KG/HR 14.696 mls/hr IV .Q17H1M [facility] Rx#: [id number] Oral 0 Other: Voiding Method Toilet # Voids 1 01/15/19 06:26 01/13/19 21:22
--- NOTE | 2019-01-15 16:11 | P.PN ---
Subjective Progress Note Date: 01/15/19 Principal diagnosis: Renal infarct In f/u pt has persistent right back pain, not much is helping relieve it, no other c/o today Objective - Vital Signs Vital signs: Vital Signs Temp 99.3 F 01/15/19 14:45 Pulse 85 01/15/19 15:13 Resp 19 01/15/19 15:13 BP 156/92 01/15/19 14:45 Pulse Ox 86 L 01/15/19 14:45 Intake & Output 01/14/19 01/15/19 01/15/19 18:59 06:59 18:59 Intake Total 653.720 0 235.194 Balance 653.720 0 235.194 Intake: Intake, IV Titration 303.720 235.194 Amount Heparin Sod,Pork in 0.45% 153.720 235.194 NaCl 25,000 unit In 0.45 % NaCl 1 250ml.bag @ 18 UNITS/KG/HR 14.696 mls/hr IV .Q17H1M [facility] Rx#: [id number] Sodium Chloride 0.9% 1, 150 000 ml @ 125 mls/hr IV . Q8H [facility] Rx#:[id number] Oral 350 0 Other: Voiding Method Toilet Toilet Toilet # Voids 1 - Constitutional General appearance: Present: average body habitus, cooperative, no acute distress - EENT Eyes: Present: anicteric sclerae, EOMI ENT: Present: hearing grossly normal - Respiratory Details: respirations even and unlabored - Cardiovascular Details: radial pulse 2+ - Gastrointestinal General gastrointestinal: Present: soft - Neurologic Neurologic: Present: CNII-XII intact - Musculoskeletal Musculoskeletal: Present: strength equal bilaterally - Psychiatric Psychiatric: Present: A&O x's 3, appropriate affect, intact judgment & insight - Labs CBC & Chem 7: 01/15/19 06:26 01/13/19 21:22 Labs: Abnormal Lab Results - Last 24 Hours (Table) 01/14/19 01/14/19 01/15/19 Range/Units 12:25 17:34 06:26 WBC 15.8 H (3.8-10.6) k/uL Neutrophils # 12.3 H (1.3-7.7) k/uL APTT 53.4 H (22.0-30.0) sec Lupus Anticoag aPTT 100 H (<43) Sec(s) Lupus Anticoag PTT Mix 64 H (<43) Sec(s) 01/15/19 Range/Units 06:26 WBC (3.8-10.6) k/uL Neutrophils # (1.3-7.7) k/uL APTT 47.4 H (22.0-30.0) sec Lupus Anticoag aPTT (<43) Sec(s) Lupus Anticoag PTT Mix (<43) Sec(s) Assessment and Plan (1) Renal infarction Narrative/Plan: Pt being seen by Cardiology and Vascular for work up Ordered CT angio of AP today cont antiplatelet therapy and heparin drip for now Current Visit: Yes Status: Acute Priority: High Code(s): N28.0 - ISCHEMIA AND INFARCTION OF KIDNEY SNOMED Code(s): 24426232 (2) Acute flank pain Narrative/Plan: Currently on MSIR IVP for pain. Meds to prevent narcotic induced constipation Current Visit: Yes Status: Acute Priority: High Code(s): R10.9 - UNSPECIFIED ABDOMINAL PAIN SNOMED Code(s): 505802747 Plan: Pt had discharge paperwork that confirmed that he had a SPLENIC infarct post choleycystectomy not a liver infarct. This was added as an addendum to Consult
[2019-01-15] MEDS: NICOTINE 14MG/24HR PATCH TRANSDERM SCH (20:30)
[2019-01-15] MEDS ORDERED: ATORVASTATIN 10 MG TAB PO SCH (21:00)
--- NOTE | 2019-01-15 21:34 | P.PN ---
Subjective Progress Note Date: 01/15/19 Monroe Jean is a 38 yo M with PMH significant for previous hepatic infarction who presented to [facility] ED after sudden sharp R flank pain yesterday around 6 pm. He reports it migrated to his RLQ and was accompanied by nausea and vomiting. Pain started as 10/10 and was down to 5/10 by the time he got to the ED. He denies hematuria or dysuria, melena, hematochezia or constipation. In the ED he was tachycardic and hypertensive with WBC 10 and urine protein and RBC positive. CT abd/pelvis demonstrated significant R kidney enhancement concerning for renal infarction. Pt states that approx 3 years ago shortly after a cholecystectomy he had RUQ pain and was told he suffered a hepatic infarction. He does not remember following up about this as an outpatient and does not have a hypercoagulable state that he knows of. He does report 1 PPD smoking history and father of a heart attack. He does not take any medications. 01/15/2019 renal ultrasound currently being performed. Abdomen/pelvis CTA p ending. Echo ordered. Maintained on heparin drip. Right lower quadrant pain. Denies chest pain, palpitations or shortness of breath. T-max 100.1. WBC 15.8. Maintaining O2 sats in the mid to high 90s on room air. Objective - Vital Signs Vital signs: Vital Signs Temp 98.8 F 01/15/19 09:23 Pulse 57 L 01/15/19 09:23 Resp 20 01/15/19 09:23 BP 162/94 01/15/19 09:23 Pulse Ox 97 01/15/19 09:23 Intake & Output 01/14/19 01/15/19 01/15/19 18:59 06:59 18:59 Intake Total 653.720 0 Balance 653.720 0 Intake: Intake, IV Titration 303.720 Amount Heparin Sod,Pork in 0.45% 153.720 NaCl 25,000 unit In 0.45 % NaCl 1 250ml.bag @ 18 UNITS/KG/HR 14.696 mls/hr IV .Q17H1M [facility] Rx#: [id number] Sodium Chloride 0.9% 1, 150 000 ml @ 125 mls/hr IV . Q8H [facility] Rx#:[id number] Oral 350 0 Other: Voiding Method Toilet Toilet Toilet - Exam General: Lying in bed, no acute distress Eyes: PERRL, EOMI, conjunctiva normal HENT: normocephalic, mucus membranes moist Neck: supple, no JVD Lungs: normal respiratory effort, no wheezes or rales CV: Regular rate and rhythm, no murmur. Peripheral pulses 2+ Abdomen: soft, nondistended, tender right lower quadrant. No organomegaly. Positive bowel sounds Skin: warm and dry Neuro: A&Ox3, normal mood and affect. No focal deficits - Labs CBC & Chem 7: 01/15/19 06:26 01/13/19 21:22 Labs: Abnormal Lab Results - Last 24 Hours (Table) 01/14/19 01/14/19 01/15/19 Range/Units 12:25 17:34 06:26 WBC 15.8 H (3.8-10.6) k/uL Neutrophils # 12.3 H (1.3-7.7) k/uL APTT 56.5 H 53.4 H (22.0-30.0) sec 01/15/19 Range/Units 06:26 WBC (3.8-10.6) k/uL Neutrophils # (1.3-7.7) k/uL APTT 47.4 H (22.0-30.0) sec Assessment and Plan Assessment: (1) Renal infarction Current Visit: Yes Status: Acute Code(s): N28.0 - ISCHEMIA AND INFARCTION OF KIDNEY SNOMED Code(s): 09506051 (2) Acute flank pain Current Visit: Yes Status: Acute Code(s): R10.9 - UNSPECIFIED ABDOMINAL PAIN SNOMED Code(s): 724464175 (3) Hematuria Current Visit: Yes Status: Acute Code(s): R31.9 - HEMATURIA, UNSPECIFIED SNOMED Code(s): 27036439 Plan: Continue on current medication regime ,monitoring and symptomatic treatment. Statin added to med regime. Echo ordered. Continues on heparin drip. Cardiology evaluation in place with recommendations pending. Further testing in progress for today as mentioned above. Patient and significant other at bedside and updated on current workup, results and plan of care. Significant other expresses understanding of and agreement with plan. Patient had actually fallen asleep while having renal ultrasound performed. Further recommendations to follow. The impression and plan of care has been dictated as directed. Dr.: I performed a history and examination of this patient, discussed the same with the dictator. I agree with the dictator's note ,documented as a scribe. Any additional findings or plans will be noted.
[2019-01-16] MEDS: SODIUM CHLORIDE 0.9% 1,000 ML IV SCH ×4 (02:24→23:34)
[2019-01-16] MEDS: HEPARIN SOD,PORK IN 0.45% NACL 25,000 UNIT in 0.45% NACL 1 250ML.BAG IV SCH ×2 (02:25→10:32)
[2019-01-16 06:05] LABS: Basophils # (A) 0.1 k/uL (0-0.2); Basophils % (A) 0 %; Eosinophils # (A) 0.1 k/uL (0-0.7); Eosinophils % (A) 1 %; HCT 43.2 % (39.0-53.0); HGB 15.1 gm/dL (13.0-17.5); Lymphocytes % (A) 12 %; MCH 29.8 pg (25.0-35.0); MCHC 34.9 g/dL (31.0-37.0); MCV 85.5 fL (80.0-100.0); Mean Platelet Volume 8.1; Monocytes # (A) 1.3 k/uL (0-1.0); Monocytes % (A) 7 %; Neutrophils # (A) 13.6 k/uL (1.3-7.7); Neutrophils % (A) 79 %; Platelet Count 177 k/uL (150-450); RBC 5.06 m/uL (4.30-5.90); WBC 17.3 k/uL (3.8-10.6)
[2019-01-16] MEDS: fentaNYL (PF) 50 MCG/ML 2 ML AMP IV ONE ×2 (09:08→09:12)
[2019-01-16] MEDS ORDERED: BENZOCAINE SPRAY 1 CAN MUCOUS MEM ONE (09:08)
[2019-01-16] MEDS ORDERED: IV FLUID CONTINUATION 700 ML IV ONE (09:08)
[2019-01-16] MEDS ORDERED: MIDAZOLAM (PF) 2 MG/2 ML VIAL IVP ONE (09:08)
[2019-01-16] MEDS: MIDAZOLAM (PF) 2 MG/2 ML VIAL IVP ONE ×2 (09:09→09:12)
[2019-01-16] MEDS: NICOTINE 14MG/24HR PATCH TRANSDERM SCH (09:31)
[2019-01-16] MEDS: ASPIRIN 81 MG PO SCH (09:31)
--- NOTE | 2019-01-16 09:36 | P.TEE ---
Indications for Procedure(s): Rule out Cardec source of emboli. History of hepatic and renal infarct Date of Procedure: 01/16/19 Preoperative Diagnosis: Renal infarct to rule out Cardec source of emboli Postoperative Diagnosis: No evidence of any Cardec source of emboli on the study Description of Procedure(s): INDICATION: Rule out Cardec source of emboli CONSENT:. Verbal consent is obtained from patient. Patient was explained the risks and benefits of the procedure which she fully understood and accepted PROCEDURE:. Patient was brought to the lab in a fasting state. He was prepped and draped in the usual fashion. He was given IV sedation in the form of of 3 mg of Versed and 37.5 g of fentanyl. The throat was sprayed with a Hurricaine. A lubricated Omni probe was introduced in the oropharynx and was advanced into the esophagus. Multiple views were obtained. Attempts were made to advance the probe into the stomach, but was abandoned because of patient having significant difficulty and discomfort. Color, pulsed and continuous Doppler studies were performed. Contrast saline bubble injection was also performed. Patient tolerated the procedure well FINDINGS: The aortic valve is tricuspid. The aortic valve is functioning nor vignesh without any significant stenosis or regurgitation. Mitral valve structure appeared to be normal with trace regurgitation. Tricuspid valve structure and function appear to be normal. The interatrial septum appeared to be intact without any spontaneous shunt. Saline bubble injection did not reveal any crossing of the bubbles across the interatrial septum. The left ventricle function appeared to be intact. The chamber sizes appear to be normal IMPRES#1. No PFO. #2. No clot in the left atrial appendage #3. Normal chamber sizes #4. Normal left ventricle function. #5. No evidence of cardiac source of emboli on the study. #6. The thoracic aorta appeared to be free of any plaque. PLAN: Continue medical therapy. Look for other causes for embolic events.
--- NOTE | 2019-01-16 10:31 | P.PN ---
Subjective Progress Note Date: 01/16/19 Monroe Jean is a 38 yo M with PMH significant for previous hepatic infarction who presented to [facility] ED after sudden sharp R flank pain yesterday around 6 pm. He reports it migrated to his RLQ and was accompanied by nausea and vomiting. Pain started as 10/10 and was down to 5/10 by the time he got to the ED. He denies hematuria or dysuria, melena, hematochezia or constipation. In the ED he was tachycardic and hypertensive with WBC 10 and urine protein and RBC positive. CT abd/pelvis demonstrated significant R kidney enhancement concerning for renal infarction. Pt states that approx 3 years ago shortly after a cholecystectomy he had RUQ pain and was told he suffered a hepatic infarction. He does not remember following up about this as an outpatient and does not have a hypercoagulable state that he knows of. He does report 1 PPD smoking history and father of a heart attack. He does not take any medications. 01/15/2019 renal ultrasound currently being performed. Abdomen/pelvis CTA pending. Echo ordered. Maintained on heparin drip. Right lower quadrant pain. Denies chest pain, palpitations or shortness of breath. T-max 100.1. WBC 15.8. Maintaining O2 sats in the mid to high 90s on room air. On 01/16 patient continuing to complain of flank pain which is fairly well contr olled with morphine. ALFONSO was performed which was unremarkable. Renal US and CTA abd/pelvis with no vascular abnormalities. Pt did spike fever to 101 yesterday with WBC up to 17. He denies chest pain, shortness of breath or dysuria. Objective - Vital Signs Vital signs: Vital Signs Temp 98.6 F 01/16/19 07:00 Pulse 91 01/16/19 09:17 Resp 14 01/16/19 07:00 BP 166/92 01/16/19 09:17 Pulse Ox 96 01/16/19 09:17 Intake & Output 01/15/19 01/16/19 01/16/19 18:59 06:59 18:59 Intake Total 353.194 466.007 100 Balance 353.194 466.007 100 Intake: IV 100 Intake, IV Titration 235.194 226.007 Amount Heparin Sod,Pork in 0.45% 235.194 226.007 NaCl 25,000 unit In 0.45 % NaCl 1 250ml.bag @ 18 UNITS/KG/HR 14.696 mls/hr IV .Q17H1M [facility] Rx#: [id number] Oral 118 240 Other: Voiding Method Toilet Toilet # Voids 1 - Exam General: Lying in bed, no acute distress Eyes: PERRL, EOMI, conjunctiva normal HENT: normocephalic, mucus membranes moist Neck: supple, no JVD Lungs: normal respiratory effort, no wheezes or rales CV: Regular rate and rhythm, no murmur. Peripheral pulses 2+ Abdomen: soft, nondistended, tender right lower quadrant. No organomegaly. Positive bowel sounds Skin: warm and dry Neuro: A&Ox3, normal mood and affect. No focal deficits - Labs CBC & Chem 7: 01/16/19 05:46 01/13/19 21:22 Labs: Abnormal Lab Results - Last 24 Hours (Table) 01/14/19 01/16/19 01/16/19 Range/Units 12:25 05:46 05:46 WBC 17.3 H (3.8-10.6) k/uL Neutrophils # 13.6 H (1.3-7.7) k/uL Monocytes # 1.3 H (0-1.0) k/uL APTT 43.6 H (22.0-30.0) sec Lupus Anticoag aPTT 100 H (<43) Sec(s) Lupus Anticoag PTT Mix 64 H (<43) Sec(s) Assessment and Plan (1) Renal infarction Current Visit: Yes Status: Acute Priority: High Code(s): N28.0 - ISCHEMIA AND INFARCTION OF KIDNEY SNOMED Code(s): 21265609 (2) Acute flank pain Current Visit: Yes Status: Acute Priority: High Code(s): R10.9 - UNSPECIFIED ABDOMINAL PAIN SNOMED Code(s): 053499498 (3) Hematuria Current Visit: Yes Status: Acute Code(s): R31.9 - HEMATURIA, UNSPECIFIED SNOMED Code(s): 05442726 Plan: 1. Renal infarction. Hematology and cardiology consulted. Vascular evaluation negative and ALFONSO unremarkable. Follow hypercoagulable workup as an outpatient. Anticoagulation per hematology. Continue statin and ASA 2. Leukocytosis. Low grade fevers. Likely UTI/pyelo secondary to renal infarction. ID consulted. Blood and urine culture ordered. Start rocephin
[2019-01-16] MEDS: oxyCODONE-APAP 5-325MG 1 EACH TAB PO PRN ×3 (10:42→23:32)
--- NOTE | 2019-01-16 12:11 | ECHOF ---
Referral Reason:renal infarct, hx of splenic infarct MEASUREMENTS -------- HEIGHT: 175.3 cm WEIGHT: 81.6 kg BP: 162/94 RVIDd: 3.3 cm (< 3.3) IVSd: 1.2 cm (0.6 - 1.1) LVIDd: 4.3 cm (3.9 - 5.3) LVPWd: 1.1 cm (0.6 - 1.1) IVSs: 1.4 cm LVIDs: 2.9 cm LVPWs: 1.5 cm LA Diam: 3.1 cm (2.7 - 3.8) LAESV Index (A-L): 23.47 ml/m Ao Diam: 2.9 cm (2.0 - 3.7) AV Cusp: 2.0 cm (1.5 - 2.6) MV EXCURSION: 13.362 mm (> 18.000) MV EF SLOPE: 116 mm/s (70 - 150) EPSS: 0.6 cm MV E August: 0.96 m/s MV DecT: 155 ms MV A August: 0.82 m/s MV E/A Ratio: 1.17 FINDINGS -------- Sinus rhythm. This was a technically good study. The left ventricular size is normal. There is borderline concentric left ventricular hypertrophy. Overall left ventricular systolic function is normal with, an EF between 60 - 65 %. The right ventricle is mildly enlarged. Normal LA size by volume 22+/-6 ml/m2. The right atrium is normal in size. Interatrial and interventricular septum intact. The aortic valve is trileaflet and appears structurally normal. There is trace mitral regurgitation. Trace tricuspid regurgitation present. Trace/mild (physiologic) pulmonic regurgitation. The aortic root size is normal. Normal inferior vena cava with normal inspiratory collapse consistent with estimated right atrial pre ssure of 5 mmHg. There is no pericardial effusion. CONCLUSIONS -------- 1. Sinus rhythm. 2. This was a technically good study. 3. The left ventricular size is normal. 4. There is borderline concentric left ventricular hypertrophy. 5. Overall left ventricular systolic function is normal with, an EF between 60 - 65 %. 6. The right ventricle is mildly enlarged. 7. Normal LA size by volume 22+/-6 ml/m2. 8. The right atrium is normal in size. 9. Interatrial and interventricular septum intact. 10. The aortic valve is trileaflet and appears structurally normal. 11. There is trace mitral regurgitation. 12. Trace tricuspid regurgitation present. 13. Trace/mild (physiologic) pulmonic regurgitation. 14. The aortic root size is normal. 15. Normal inferior vena cava with normal inspiratory collapse consistent with estimated right atrial pressure of 5 mmHg. 16. There is no pericardial effusion. SURG NURSE: Kylie Hamilton RDCS
--- NOTE | 2019-01-16 16:29 | P.PN ---
Subjective Progress Note Date: 01/16/19 Principal diagnosis: Renal infarct In f/u pt pain is a little bit better, he denies any acute complaints, no bleeding. Objective - Vital Signs Vital signs: Vital Signs Temp 98.7 F 01/16/19 14:14 Pulse 97 01/16/19 14:14 Resp 15 01/16/19 14:14 BP 148/88 01/16/19 14:14 Pulse Ox 96 01/16/19 14:14 Intake & Output 01/15/19 01/16/19 01/16/19 18:59 06:59 18:59 Intake Total 353.194 648.886 6385.993 Balance 353.194 395.849 5732.993 Intake: IV 100 Intake, IV Titration 235.194 226.007 823.993 Amount Heparin Sod,Pork in 0.45% 235.194 226.007 23.993 NaCl 25,000 unit In 0.45 % NaCl 1 250ml.bag @ 18 UNITS/KG/HR 14.696 mls/hr IV .Q17H1M [facility] Rx#: [id number] Sodium Chloride 0.9% 1, 750 000 ml @ 125 mls/hr IV . Q8H [facility] Rx#:[id number] cefTRIAXone 1 gm In 50 Sodium Chloride 0.9% 50 ml @ 100 mls/hr IVPB Q24HR [facility] Rx#:[id number] Oral 118 240 147 Other: Voiding Method Toilet Toilet Toilet # Voids 1 - Constitutional General appearance: Present: average body habitus, cooperative, no acute distress - EENT Eyes: Present: anicteric sclerae, EOMI ENT: Present: hearing grossly normal, normal oropharynx - Respiratory Respiratory: bilateral: CTA - Cardiovascular Heart sounds: normal: S1, S2 - Peripheral edema leg Peripheral Edema: bilateral: None - Gastrointestinal General gastrointestinal: Present: normal bowel sounds, soft - Integumentary Integumentary: Present: normal - Neurologic Neurologic: Present: CNII-XII intact - Musculoskeletal Musculoskeletal: Present: strength equal bilaterally - Psychiatric Psychiatric: Present: A&O x's 3, appropriate affect, intact judgment & insight - Labs CBC & Chem 7: 01/16/19 05:46 01/13/19 21:22 Labs: Abnormal Lab Results - Last 24 Hours (Table) 01/16/19 01/16/19 Range/Units 05:46 05:46 WBC 17.3 H (3.8-10.6) k/uL Neutrophils # 13.6 H (1.3-7.7) k/uL Monocytes # 1.3 H (0-1.0) k/uL APTT 43.6 H (22.0-30.0) sec Microbiology - Last 24 Hours (Table) 01/16/19 10:55 Urine Culture - Preliminary Urine,Voided - Imaging and Cardiology CT scan - pelvis: report reviewed US - abdomen: report reviewed Assessment and Plan (1) Renal infarction Current Visit: Yes Status: Acute Priority: High Code(s): N28.0 - ISCHEMIA AND INFARCTION OF KIDNEY SNOMED Code(s): 16193892 (2) Acute flank pain Narrative/Plan: Pain now managed on oral Percocet Close monitoring for narcotic-induced constipation, recommend at least a daily stool softener. Current Visit: Yes Status: Acute Priority: High Code(s): R10.9 - UNSPECIFIED ABDOMINAL PAIN SNOMED Code(s): 962662200 Plan: Case was briefly discussed with Cardiology Nurse Practitioner as well as Vascular Medicine. Hypercoagulable workup that has been returned is negative for any hypercoagulable condition. There is still a few other studies pending. Case also reviewed with Dr. Hurd. At this time the recommendation at this time is to continue anticoagulation. Can be converted oral drug of pt insurance formulary and once all procedures are concluded. Next Extensive patient education regarding anticoagulation-including safety, medical alert identification, bleeding precautions- was discussed with the patient and his . If the workup is inconclusive, Dr. Hurd is recommending proximal nocturnal hemoglobinuria workup in the outpatient setting.
--- NOTE | 2019-01-16 16:44 | P.PN ---
Subjective Progress Note Date: 01/16/19 Patient seen and examined. Pain improved. No issues overnight Objective - Vital Signs Vital signs: Vital Signs Temp 98.7 F 01/16/19 14:14 Pulse 97 01/16/19 14:14 Resp 15 01/16/19 14:14 BP 148/88 01/16/19 14:14 Pulse Ox 96 01/16/19 14:14 Intake & Output 01/15/19 01/16/19 01/16/19 18:59 06:59 18:59 Intake Total 353.194 593.340 3236.993 Balance 353.194 066.195 7678.993 Intake: IV 100 Intake, IV Titration 235.194 226.007 823.993 Amount Heparin Sod,Pork in 0.45% 235.194 226.007 23.993 NaCl 25,000 unit In 0.45 % NaCl 1 250ml.bag @ 18 UNITS/KG/HR 14.696 mls/hr IV .Q17H1M [facility] Rx#: [id number] Sodium Chloride 0.9% 1, 750 000 ml @ 125 mls/hr IV . Q8H [facility] Rx#:[id number] cefTRIAXone 1 gm In 50 Sodium Chloride 0.9% 50 ml @ 100 mls/hr IVPB Q24HR [facility] Rx#:[id number] Oral 118 240 147 Other: Voiding Method Toilet Toilet Toilet # Voids 1 - Exam No acute distress, resting comfortably No respiratory distress Abdomen soft Bilateral lower extremity is warm and dry. - Labs CBC & Chem 7: 01/16/19 05:46 01/13/19 21:22 Labs: Abnormal Lab Results - Last 24 Hours (Table) 01/16/19 01/16/19 01/16/19 Range/Units 05:46 05:46 13:01 WBC 17.3 H (3.8-10.6) k/uL Neutrophils # 13.6 H (1.3-7.7) k/uL Monocytes # 1.3 H (0-1.0) k/uL APTT 43.6 H 47.2 H (22.0-30.0) sec Microbiology - Last 24 Hours (Table) 01/16/19 10:55 Urine Culture - Preliminary Urine,Voided Assessment and Plan Assessment: #1 acute right renal infarction with unknown etiology #2 right flank pain secondary to #1 #3 history of hepatic infarction Plan: Renal ultrasound and CT were reviewed. There is flow at the renal artery. At this time would continue anticoagulation with hematologic workup at discharge. ALFONSO was negative per reports. There is no further vascular intervention planned. We will sign off and leave further anticoag recs to [facility]. Thank you. Please call if there are any questions.
--- NOTE | 2019-01-16 18:51 | XR ---
EXAMINATION TYPE: XR chest 2V DATE OF EXAM: 01/16/2019 COMPARISON: NONE HISTORY: Fever TECHNIQUE: Frontal and lateral views of the chest are obtained. FINDINGS: Heart and mediastinum are normal. There is some linear density right midlung. The other broderick ng drew are clear. Costophrenic angles are clear. There are no hilar masses. IMPRESSION: Minimal linear infiltrate or subsegmental atelectasis in the right middle lobe. Normal h eart.
[2019-01-16] MEDS ORDERED: ATORVASTATIN 20 MG TAB PO SCH (21:00)
--- NOTE | 2019-01-17 00:11 | P.CONS ---
History of Present Illness - Reason for Consult Consult date: 01/16/19 Fever of unknown origin Requesting physician: Reed Hyman - Chief Complaint Right flank pain x 1 day before admission , fever 1 day - History of Present Illness Patient is a 38-year-old male with past medical history significant for splenic infarct after cholecystectomy a few years ago, the day of presentation to the hospital the patient did develop acute pain in his right flank area the pain was described to be more of a sharp pain almost 10 out of 10 in severity with some radiation across the anterior abdominal associated nausea but no vomiting and no diarrhea, patient was afebrile on presentation to the hospital the patient did have a CT of abdominal pelvis with evidence of right- sided renal infarct subsequently he did have CT angiogram chest abdominal pelvis which shows progression of the renal infarct and no other abnormality patient also have a renal duplex which did not show any blood flow abnormality patient has been evaluated by hematology oncology and currently workup is in progress for possible hypercoagulable state, patient who was afebrile since admission despite the fever off 100.1 and subsequently 100.8 that prompted this infection disease consultation, patient denies having any rigors or chills the patient right flank pain has decreased in intensity no further nausea no vomiting no URI symptoms some shortness of breath with minimal exertion but no chest pain or coughing pain and no diarrhea Review of Systems Positive points has been mentioned in HPI rest of the systems are negative Past Medical History Past Medical History: No Reported History Additional Past Medical History / Comment(s): Hepatic infarction History of Any Multi-Drug Resistant Organisms: None Reported Past Surgical History: Cholecystectomy, Hernia Repair Additional Past Surgical History / Comment(s): 2X Hernia repair and cholecystectomy, liver infarction Past Anesthesia/Blood Transfusion Reactions: No Reported Reaction Past Psychological History: No Psychological Hx Reported Smoking Status: Current every day smoker Past Alcohol Use History: Daily Past Drug Use History: None Reported - Past Family History Father Family Medical History: Hypertension Mother History Unknown: Yes Medications and Allergies Home Medications Medication Instructions Recorded Confirmed Type No Known Home Medications 01/13/19 01/13/19 History Allergies Allergy/AdvReac Type Severity Reaction Status Date / Time No Known Allergies Allergy Verified 01/13/19 21:41 Physical Exam Vitals: Vital Signs Temp Pulse Pulse Resp BP Pulse Ox 01/16/19 14:14 98.7 F 97 15 148/88 96 01/16/19 09:17 91 166/92 96 01/16/19 09:11 110 H 182/108 93 L 01/16/19 09:02 72 182/96 99 01/16/19 07:00 98.6 F 85 14 173/90 97 01/16/19 02:17 98.8 F 98 17 137/76 95 01/15/19 20:29 99.8 F H 85 85 18 172/93 97 01/15/19 19:53 101.2 F H 101 H 18 154/78 94 L 01/15/19 16:45 18 Intake and Output 01/16/19 01/16/19 01/16/19 06:59 14:59 22:59 Intake Total 898.165 4951.993 Balance 158.859 2125.993 Intake: IV 100 Intake, IV Titration 226.007 823.993 Amount Heparin Sod,Pork in 0.45% 226.007 23.993 NaCl 25,000 unit In 0.45 % NaCl 1 250ml.bag @ 18 UNITS/KG/HR 14.696 mls/hr IV .Q17H1M [facility] Rx#: [id number] Sodium Chloride 0.9% 1, 750 000 ml @ 125 mls/hr IV . Q8H [facility] Rx#:[id number] cefTRIAXone 1 gm In 50 Sodium Chloride 0.9% 50 ml @ 100 mls/hr IVPB Q24HR [facility] Rx#:[id number] Oral 0 147 Other: Voiding Method Toilet GENERAL DESCRIPTION: Middle-aged male lying in bed, no distress. No tachypnea or accessory muscle of respiration use. HEENT: Shows Pallor , no scleral icterus. Oral mucous membrane is dry. No pharyngeal erythema or thrush NECK: Trachea central, no thyromegaly. LUNGS: Unlabored breathing. Decreased breath sound at the bases. No wheeze or crackle. HEART: S1, S2, regular rate and rhythm. No loud murmur ABDOMEN: Soft, mild right CVA tenderness , no guarding or rigidity, no organomegaly EXTREMITIES: No edema of feet. SKIN: No rash, no masses palpable. NEUROLOGICAL: The patient is awake, alert, oriented x3, mood and affect normal. Results CBC & Chem 7: 01/16/19 05:46 01/13/19 21:22 Labs: Abnormal Lab Results - Last 24 Hours (Table) 01/16/19 01/16/19 Range/Units 05:46 05:46 WBC 17.3 H (3.8-10.6) k/uL Neutrophils # 13.6 H (1.3-7.7) k/uL Monocytes # 1.3 H (0-1.0) k/uL APTT 43.6 H (22.0-30.0) sec Microbiology - Last 24 Hours (Table) 01/16/19 10:55 Urine Culture - Preliminary Urine,Voided Assessment and Plan Assessment: 1-patient with a fever this patient who has been admitted to the hospital with right renal infarct spontaneous with the workup for etiology so far negative and is currently on anticoagulation source of the fever more likely secondary to underlying renal infarct with concern for possible hemorrhagic transformation as currently the patient do not have any other clinical focus of infection patient does not look toxic no clinical findings on auscultation of the lungs and abdomen was soft on palpation and no evidence of any cellulitis, blood and urine culture has been no pain which are currently pending Plan: 1-we will obtain chest x-ray to complete the workup 2-incentive spirometry 3-follow up on the blood and the urine culture 4-Rocephin 1 g daily to continue 5-if persistent fever repeat CT of abdominal pelvis to follow-up on the right renal infarct and to make sure no evidence of any hemorrhagic transformation we will follow on clinical condition and culture to further adjust medication if needed Thank you for this consultation will follow this patient along with you Time with Patient: Greater than 30
[2019-01-17] MEDS: HEPARIN SOD,PORK IN 0.45% NACL 25,000 UNIT in 0.45% NACL 1 250ML.BAG IV SCH (03:08)
[2019-01-17] MEDS: oxyCODONE-APAP 5-325MG 1 EACH TAB PO PRN ×3 (06:57→17:30)
[2019-01-17] MEDS: ASPIRIN 81 MG PO SCH (07:29)
[2019-01-17] MEDS: NICOTINE 14MG/24HR PATCH TRANSDERM SCH (07:29)
[2019-01-17 07:55] VITALS: RESP 14
[2019-01-17 09:47] LABS: Basophils % (A) 0 %; Eosinophils # (A) 0.1 k/uL (0-0.7); Eosinophils % (A) 1 %; HCT 41.3 % (39.0-53.0); HGB 14.1 gm/dL (13.0-17.5); Lymphocytes # (A) 1.5 k/uL (1.0-4.8); Lymphocytes % (A) 11 %; MCH 29.6 pg (25.0-35.0); MCHC 34.2 g/dL (31.0-37.0); MCV 86.6 fL (80.0-100.0); Mean Platelet Volume 8.9; Monocytes # (A) 0.6 k/uL (0-1.0); Monocytes % (A) 5 %; Neutrophils # (A) 10.5 k/uL (1.3-7.7); Neutrophils % (A) 82 %; Platelet Count 166 k/uL (150-450); RBC 4.77 m/uL (4.30-5.90); RDW 13.8 % (11.5-15.5); WBC 12.9 k/uL (3.8-10.6)
[2019-01-17] MEDS: SODIUM CHLORIDE 0.9% 1,000 ML IV SCH ×2 (10:56→14:23)
--- NOTE | 2019-01-17 11:47 | CT ---
EXAMINATION TYPE: CT abdomen pelvis w con DATE OF EXAM: 01/17/2019 COMPARISON: 01/15/2019 and 01/13/2019 HISTORY: persistent fever, renal infact, rule out bleed CONTRAST: CT scan of the abdomen and pelvis is performed without Oral Contrast and with IV Contrast, patient in jected with 100 mL of Isovue 300. FINDINGS: LUNG BASES-: No visible nodule. No infiltrate. Basilar mild compressive atelectasis. LIVER/GB: No calcified gallstones. Attic steatosis with hepatomegaly noted. No space occupying hep atic lesion. Biliary tree is of normal caliber. PANCREAS: No inflammation. No distinct mass. SPLEEN: No splenic enlargement. No lesion seen. ADRENALS: No nodule. No thickening. KIDNEYS/BLADDER: There is a persistent large right-sided renal perfusion abnormality essentially unch anged from prior study. Differential diagnostic possibilities include infarct as well as a superimpos ed infection. There is mild right-sided renal edema. No progression is noted. There is a new small ar ea of decreased attenuation within the lower pole of the left kidney which may reflect additional inf arct or new area of pyelonephritis. Correlate clinically with urinalysis. No evidence for abscess. BOWEL: Normal appendix. Normal bowel caliber. No inflammation. GENITAL ORGANS: No gross abnormality. LYMPH NODES: No greater than 1cm abdominal or pelvic lymph nodes are appreciated. AORTA: No significant abnormality. OSSEOUS STRUCTURES: No significant abnormality is seen. OTHER: No significant additional abnormality is seen. IMPRESSION: 1. There is a new small area of decreased attenuation within the lower pole of the left kidney which may reflect additional infarct and/or new area of pyelonephritis. 2. Stable persistent large right-sided attenuation abnormality which may reflect infarct and/or infec tion. Correlate clinically and with urinalysis.
[2019-01-17 12:42] LABS: Protein C Antigen 119 % (72-160)
[2019-01-17 14:12] VITALS: BP 190/108; PULSE 71; TEMP 99.7
--- NOTE | 2019-01-17 14:17 | PN ---
PROGRESS NOTE DATE OF SERVICE: 01/17/2019. REASON FOR FOLLOWUP: Fever with renal infarct. INTERVAL HISTORY: The patient did have low grade fever of 100.4 last night. The patient afebrile since this morning. The patient has been complaining of some shortness of breath apparently started last night. He did have very minimal cough, not bringing up any sputum. No nausea, vomiting. No abdominal pain. No diarrhea. Pain on the right leg area has decreased about 3/10, and no pain in the left leg area. PHYSICAL EXAMINATION: On examination, blood pressure 173/103, pulse of 68, temperature 99. He is 96% on room air. General description is a middle-aged male in the bed in no distress. RESPIRATORY SYSTEM: Unlabored breathing with decreased breath sounds at the bases. HEART: S1, S2. Regular rate and rhythm: ABDOMEN: Soft, no tenderness. EXTREMITIES: No edema of the feet. LABS: Hemoglobin 14.1, white count 12.9. Initial UA urine culture negative. Blood culture so far negative. DIAGNOSTIC IMPRESSION AND PLAN: Patient with a fever in this patient admitted to the hospital with right renal infarct. Currently, workup in progress for hypercoagulable state now. We will repeat blood cultures x2. The patient has been started on incentive spirometry. Continue with Rocephin and monitor his clinical course closely. Family have multiple questions, those were answered. MMODL / IJN: [id number] /
[2019-01-17 15:00] LABS: Appearance,Urine Clear (Clear); Bilirubin,Urine Negative (Negative); Blood,Urine Moderate (Negative); Color,Urine Light Yellow; Glucose,Urine (UA) Negative (Negative); Ketones,Urine Negative (Negative); Leukocyte Esterase,Urine Negative (Negative); Nitrite,Urine Negative (Negative); PH, Urine 7.5 (5.0-8.0); Protein,Urine Trace (Negative); RBC,Urine 24 /hpf (0-5); Specific Gravity,Urine 1.031 (1.001-1.035); Squamous Epithelial Cell,Urine <1 /hpf (0-4); Urobilinogen,Urine <2.0 mg/dL (<2.0); WBC,Urine 1 /hpf (0-5)
[2019-01-17] MEDS ORDERED: APIXABAN 5 MG TAB PO SCH (17:00)
[2019-01-17] MEDS ORDERED: LISINOPRIL 20 MG TAB PO SCH (18:00)
--- NOTE | 2019-01-18 18:07 | P.DS ---
<Rosalie Velasquez - Last Filed: 01/17/19 16:42> Patient Condition at Discharge: Stable Plan - Discharge Summary Discharge Rx Participant: Yes New Discharge Prescriptions: New Aspirin EC [Ecotrin Low Dose] 81 mg PO DAILY #30 tablet. Nicotine 14Mg/24Hr Patch [Habitrol] 1 patch TRANSDERM DAILY #30 patch Atorvastatin [Lipitor] 20 mg PO HS #30 tab Cefuroxime Axetil [Ceftin] 500 mg PO BID #20 tab oxyCODONE-APAP 5-325MG [Percocet 5-325 mg] 1 each PO Q4HR PRN #18 tab PRN Reason: Severe Pain Apixaban [Eliquis] 5 mg PO BID #60 tab Omeprazole [PriLOSEC] 20 mg PO AC-BID #60 cap Apixaban [Eliquis] 5 mg PO BID tab Lisinopril [Zestril] 20 mg PO DAILY #20 tab Discharge Medication List Apixaban [Eliquis] 5 mg PO BID tab 01/17/19 [Rx] Apixaban [Eliquis] 5 mg PO BID #60 tab 01/17/19 [Rx] Aspirin EC [Ecotrin Low Dose] 81 mg PO DAILY #30 tablet. 01/17/19 [Rx] Atorvastatin [Lipitor] 20 mg PO HS #30 tab 01/17/19 [Rx] Cefuroxime Axetil [Ceftin] 500 mg PO BID #20 tab 01/17/19 [Rx] Lisinopril [Zestril] 20 mg PO DAILY #20 tab 01/17/19 [Rx] Nicotine 14Mg/24Hr Patch [Habitrol] 1 patch TRANSDERM DAILY #30 patch 01/17/19 [Rx] Omeprazole [PriLOSEC] 20 mg PO AC-BID #60 cap 01/17/19 [Rx] oxyCODONE-APAP 5-325MG [Percocet 5-325 mg] 1 each PO Q4HR PRN #18 tab 01/17/19 [Rx] Follow up Appointment(s)/Referral(s): Kenan Hurd MD [STAFF PHYSICIAN] - 1 Week Azalia Noguera MD [STAFF PHYSICIAN] - 6 Weeks Shanice Jean DO [Primary Care Provider] - 3 Days Ambulatory/Diagnostic Orders: Complete Blood Count w/diff [LAB.AMB] Time Frame: 3 Days, Location: None Selected Patient Instructions/Handouts: Acute Kidney Injury (DC), Abdominal Pain (ED) Activity/Diet/Wound Care/Special Instructions: BP pending: page with results for further orders. case management to verify coverage for Eliquis. IS q1H X 10, [place] Activity: Limited until follow up Discharge Disposition: HOME SELF-CARE <Reed Hyman - Last Filed: 01/18/19 18:07> Providers Date of admission: 01/14/19 13:32 Expected date of discharge: 01/17/19 Attending physician: Reed Hyman MD Consults: 01/14/19 02:35 Consult Physician Urgent Consulting Provider: Av Barahona Consult Reason/Comments: coagulopathy Do you want consulting provider notified?: Yes, Notify in am 01/14/19 13:38 Consult Physician Routine Consulting Provider: Azalia Noguera Consult Reason/Comments: renal infarct, rule out mechanical cardiac cause Do you want consulting provider notified?: Already Contacted 01/16/19 08:49 Consult Physician Routine Consulting Provider: Tawana Us Consult Reason/Comments: fevers,renal infarct Do you want consulting provider notified?: Yes Primary care physician: Shanice Jean - Discharge Diagnosis(es) (1) Renal infarction Status: Acute Priority: High (2) Acute flank pain Status: Acute Priority: High (3) Hematuria Status: Acute Hospital Course: Monroe Jean is a 38 yo M with PMH significant for previous hepatic infarction who presented to [facility] ED after sudden sharp R flank pain yesterday around 6 pm. He reports it migrated to his RLQ and was accompanied by nausea and vomiting. Pain started as 10/10 and was down to 5/10 by the time he got to the ED. He denies hematuria or dysuria, melena, hematochezia or constipation. In the ED he was tachycardic and hypertensive with WBC 10 and urine protein and RBC positive. CT abd/pelvis demonstrated significant R kidney enhancement concerning for renal infarction. Pt states that approx 3 years ago shortly after a cholecystectomy he had RUQ pain and was told he suffered a hepatic infarction. He does not remember following up about this as an outpatient and does not have a hypercoagulable state that he knows of. He does report 1 PPD smoking history and father of a heart attack. He does not take any medications. Pt was admitted and started on a heparin drip. He was evaluated by hematology and vascular surgery. He was negative for hypercoagulable state and CTA abdomen was unremarkable with the exception of his R renal infarct. Renal artery US was also performed and negative. Pt was evaluated by cardiology and ALFONSO unr emarkable. He was started on ASA and lipitor and pain controlled with narcotics. He was continued on anticoagulation per hematology and will follow up in their clinic to cathyuss discontinuing once the remainder of his hypercoagulable workup comes back. Pt did have a fever and was started on rocephin to cover pyelonephritis. He will continue ceftin for 10 days on discharge. He will continue with ASA and lipitor and follow up with PCP for further management.
== END 2019-01-17 18:28 | disposition home or self-care (01) | DRG 699 ==
LOC: SUPCPDRO 20:33 → EC 20:33 → 4SSUR 01-14 02:35 → OBSVTOIN 01-14 13:32
PROVIDERS: ADMIT Family Medicine; ATTEND Family Medicine
DX: N28.0 Ischemia and infarction of kidney (principal); D68.59 Other primary thrombophilia; N12 Tubulo-interstitial nephritis, not specified as acute or chronic; F17.210 Nicotine dependence, cigarettes, uncomplicated; I10 Essential (primary) hypertension; Z82.49 Family history of ischemic heart disease and other diseases of the circulatory system; Z90.49 Acquired absence of other specified parts of digestive tract; Y99.0 Civilian activity done for income or pay
CPT/HCPCS: 36415; 71046; 74018; 74174; 74177; 80053; 81001; 81241; 81291; 82150; 83090; 83690; 85025; 85302; 85305; 85598; 85610; 85613; 85652; 85730; 85732; 86038; 86146; 86147; 86255; 87040; 87086; 93005; 93270; 93306; 93312; 93320; 93325; 93970; 93975; 96365; 96366; 96375; 96376; 99285

== ENCOUNTER 2020-03-07 11:19 | Emergency (ER) | payer BC ==
[2020-03-07 11:37] VITALS: BP 149/92; PULSE 105; RESP 18; TEMP 99
[2020-03-07] MEDS ORDERED: cefTRIAXone 1,000 MG VIAL (IM USE) IM STA (11:48)
--- NOTE | 2020-03-07 12:11 | ED ---
General Adult HPI - General Chief complaint: Skin/Abscess/Foreign Body Stated complaint: leg pain Time Seen by Provider: 03/07/20 11:38 Source: patient, RN notes reviewed, old records reviewed Mode of arrival: ambulatory Limitations: no limitations - History of Present Illness Initial comments: 40-year-old male patient past medical history of possible renal infarct presents ED for evaluation of left womack pain and some redness. Patient reports that he noticed this yesterday. Patient has a chest pain or shortness of breath. Patient is a little bit tightness in his groin region as well. Patient is no longer on any sort anticoagulation. Denies any fevers or chills. Denies any other complaints. Systemic: Pt denies fatigue, fever/chills, rash. Pt denies weakness, night sweats, weight loss. Neuro: Pt denies headache, visual disturbances, syncope or pre-syncope. HEENT: Pt denies ocular discharge or irritation, otalgia, rhinorrhea, pharyngitis or notable lymphadenopathy. Cardiopulmonary: Pt denies chest pain, SOB, heart palpitations, dyspnea on exertion. Abdominal/GI: Pt denies abdominal pain, n/v/d. : Pt denies dysuria, burning w/ urination, frequency/urgency. Denies new onset urinary or bowel incontinence. MSK: Pt denies myalgia, loss of strength or function in extremities. Neuro: Pt denies new onset weakness, paresthesias. - Related Data Previous Rx's Medication Instructions Recorded Apixaban [Eliquis] 5 mg PO BID tab 01/17/19 Apixaban [Eliquis] 5 mg PO BID #60 tab 01/17/19 Aspirin EC [Ecotrin Low Dose] 81 mg PO DAILY #30 tablet. 01/17/19 Atorvastatin [Lipitor] 20 mg PO HS #30 tab 01/17/19 Cefuroxime Axetil [Ceftin] 500 mg PO BID #20 tab 01/17/19 Nicotine 14Mg/24Hr Patch [Habitrol] 1 patch TRANSDERM DAILY #30 patch 01/17/19 Omeprazole [PriLOSEC] 20 mg PO AC-BID #60 cap 01/17/19 lisinopriL [Zestril] 20 mg PO DAILY #20 tab 01/17/19 oxyCODONE-APAP 5-325MG [Percocet 1 each PO Q4HR PRN #18 tab 01/17/19 5-325 mg] Cephalexin [Keflex] 500 mg PO Q6HR 10 Days #40 cap 03/07/20 Allergies Allergy/AdvReac Type Severity Reaction Status Date / Time No Known Allergies Allergy Verified 03/07/20 11:37 Review of Systems ROS Statement: Those systems with pertinent positive or pertinent negative responses have been documented in the HPI. ROS Other: All systems not noted in ROS Statement are negative. Past Medical History Past Medical History: No Reported History Additional Past Medical History / Comment(s): Hepatic infarction History of Any Multi-Drug Resistant Organisms: None Reported Past Surgical History: Cholecystectomy, Hernia Repair Additional Past Surgical History / Comment(s): 2X Hernia repair and cholecystectomy, liver infarction Past Anesthesia/Blood Transfusion Reactions: No Reported Reaction Past Psychological History: No Psychological Hx Reported Smoking Status: Current every day smoker Past Alcohol Use History: Daily Past Drug Use History: None Reported - Past Family History Father Family Medical History: Hypertension Mother History Unknown: Yes General Exam - General Exam Comments Initial Comments: Constitutional: NAD, AOX3, Pt has pleasant affect. HEENT: NC/AT, trachea midline, neck supple, no lymphadenopathy. Posterior pharynx non erythematous, without exudates. External ears appear normal, without discharge. Mucous membranes moist. Eyes PERRLA, EOM intact. There is no scleral icterus. No pallor noted. Cardiopulmonary: RRR, no murmurs, rubs or gallops, no JVD noted. Lungs CTAB in anterior and posterior drew. No peripheral edema. Abdominal exam: Abdomen soft and non-distended. Abdomen non-tender to palpation in all 4 quadrants. Bowel sounds active in LLQ. No hepatosplenomegaly. No ecchymosis Neuro: CN II-XII grossly intact. No nuchal rigidity. MSK: area of cellulitis left anterior midshaft tibia. Approximately 4" x 2" area of redness. no significant streaking, no fluctuance,no discharge. No posterior calf tenderness bilaterally, homans sign negative bilaterally. Posterior tibialis and radial pulse +2 bilaterally. Sensation intact in upper and lower extremities. Full active ROM in upper and lower extremities, 5/5 stregnth. No external skin changes to groin, nontender, no fluctuance. Limitations: no limitations Course Vital Signs 03/07/20 11:34 Temperature 99 F Pulse Rate 105 H Respiratory 18 Rate Blood Pressure 149/92 O2 Sat by Pulse 99 Oximetry Medical Decision Making - Medical Decision Making 40-year-old male patient presents to ED for evaluation of cellulitis to left anterior chest tib-fib region. Denies any trauma any penetrating trauma. Ulatrasound is negative for DVt. Pt reports that the member of technical staff stated he had some enlarged lymph nodes in the groin. None appreciated on exam. Patient does also report that he had a splenic infarct years ago but was told he has good spleen function. Patient wishes to try outpatient oral antibiotics. Patient was administered 1 gram rocephin in ED, and will be discharged with a prescription for keflex and strict return precaution and close outpatient follow up. Patient and verbalize understanding. Case discussed with Dr. Vinson. Disposition Clinical Impression: Cellulitis Disposition: HOME SELF-CARE Condition: Stable Instructions (If sedation given, give patient instructions): Cellulitis (ED) Additional Instructions: Take antibiotics as directed. Follow up with PCP tomorrow. Return to ER immediately if cellulitis gets worse, you begin to develop fevers, nausea vomiting or any other symptoms. Prescriptions: Cephalexin [Keflex] 500 mg PO Q6HR 10 Days #40 cap Is patient prescribed a controlled substance at d/c from ED?: No Referrals: Shanice Jean DO [Primary Care Provider] - 1-2 days
--- NOTE | 2020-03-07 12:35 | US ---
EXAMINATION TYPE: US venous doppler duplex LE LT DATE OF EXAM: 03/07/2020 12:25 PM COMPARISON: NONE CLINICAL HISTORY: Pain. Pain and redness to lower womack that started yesterday, no injury, no h/o dvt SIDE PERFORMED: Left TECHNIQUE: The lower extremity deep venous system is examined utilizing real time linear array sonog baltazar with graded compression, doppler sonography and color-flow sonography. VESSELS IMAGED: External Iliac Vein (EIV) Common Femoral Vein Deep Femoral Vein Greater Saphenous Vein * Femoral Vein Popliteal Vein Small Saphenous Vein * Proximal Calf Veins (* superficial vessels) Left Leg: Negative for DVT. There is normal flow, compressibility, vascular waveforms. IMPRESSION: No evidence of DVT of the left lower extremity.
== END 2020-03-07 13:14 | disposition home or self-care (01) ==
LOC: EC 11:19
DX: L03.116 Cellulitis of left lower limb (principal); R59.0 Localized enlarged lymph nodes; F17.200 Nicotine dependence, unspecified, uncomplicated
CPT/HCPCS: 93971; 99284; 96372; J0696

== ENCOUNTER 2020-06-08 13:23 | Inpatient (IN) | payer BC ==
[2020-06-08] MEDS ORDERED: IBUPROFEN 600 MG TAB PO STA (13:56)
[2020-06-08] MEDS ORDERED: AMPICILLIN-SULBACTAM 3 GM in SODIUM CHLORIDE 0.9% 100 ML IVPB STA (13:59)
[2020-06-08 14:51] LABS: Basophils # (A) 0.3 k/uL (0-0.2); Basophils % (A) 2 %; Eosinophils # (A) 0.1 k/uL (0-0.7); Eosinophils % (A) 0 %; HCT 47.6 % (39.0-53.0); HGB 16.9 gm/dL (13.0-17.5); Lymphocytes # (A) 0.8 k/uL (1.0-4.8); Lymphocytes % (A) 5 %; MCH 31.6 pg (25.0-35.0); MCHC 35.4 g/dL (31.0-37.0); MCV 89.1 fL (80.0-100.0); Mean Platelet Volume 8.1; Monocytes # (A) 0.7 k/uL (0-1.0); Monocytes % (A) 4 %; Neutrophils # (A) 14.9 k/uL (1.3-7.7); Neutrophils % (A) 88 %; Platelet Count 127 k/uL (150-450); RBC 5.35 m/uL (4.30-5.90); RDW 11.7 % (11.5-15.5); WBC 16.9 k/uL (3.8-10.6)
[2020-06-08 15:04] LABS: ALT 153 U/L (4-49); AST 72 U/L (17-59); African American GFR (CKD) >90 (>60 ml/min/1.73 sqM); Albumin 4.7 g/dL (3.5-5.0); Alkaline Phosphatase 57 U/L (38-126); Anion Gap 4 mmol/L; Blood Urea Nitrogen 16 mg/dL (9-20); Carbon Dioxide 31 mmol/L (22-30); Chloride 99 mmol/L (98-107); Glucose 117 mg/dL (74-99); Non-African American GFR(CKD) 80 (>60 ml/min/1.73 sqM); Potassium 4.4 mmol/L (3.5-5.1); Sodium 134 mmol/L (137-145); Total Bilirubin 0.8 mg/dL (0.2-1.3); Total Protein 7.9 g/dL (6.3-8.2)
[2020-06-08 15:15] LABS: C Reactive Protein 242.9 mg/L (<10.0)
--- NOTE | 2020-06-08 15:30 | XR ---
EXAMINATION TYPE: XR tibia fibula LT DATE OF EXAM: 06/08/2020 CLINICAL HISTORY: Swelling and pain. Cellulitis. TECHNIQUE: Two views of the left leg are obtained. COMPARISON: None. FINDINGS: There is no acute fracture or dislocation seen in the left tibia or fibula. The left knee and ankle joints appear within normal limits. [id number] diffuse subcutaneous edema over the d istal leg with mild to moderate soft tissue swelling anteriorly over the ankle. No suspicious bony de struction is noted. IMPRESSION: As above.
--- NOTE | 2020-06-08 15:49 | ED ---
General Adult HPI - General Chief complaint: Skin/Abscess/Foreign Body Stated complaint: cellulitis Source: patient Mode of arrival: ambulatory Limitations: no limitations - History of Present Illness Initial comments: Patient is a 40-year-old male with past medical history of spleen and liver infarct who presents emergency Department with reported cellulitis to left lower extremity. Patient's darted having a red rash last night. He woke this morning to the extremity being more red, swollen and painful. Patient has a history of cellulitis to the left lower currently. States he follow-up with his primary care doctor and healed well with outpatient antibiotics. Patient found that he had a temp of 102 and therefore came to the emergency department for further evaluation. Denies history of DVT or PE. No current anticoagulation. Eyes any chest pain or shortness of breath. No hip, ankle or knee pain. No other alleviating, bear keeper modifying factors - Related Data Previous Rx's Medication Instructions Recorded Apixaban [Eliquis] 5 mg PO BID tab 01/17/19 Apixaban [Eliquis] 5 mg PO BID #60 tab 01/17/19 Aspirin EC [Ecotrin Low Dose] 81 mg PO DAILY #30 tablet. 01/17/19 Atorvastatin [Lipitor] 20 mg PO HS #30 tab 01/17/19 Cefuroxime Axetil [Ceftin] 500 mg PO BID #20 tab 01/17/19 Nicotine 14Mg/24Hr Patch [Habitrol] 1 patch TRANSDERM DAILY #30 patch 01/17/19 Omeprazole [PriLOSEC] 20 mg PO AC-BID #60 cap 01/17/19 lisinopriL [Zestril] 20 mg PO DAILY #20 tab 01/17/19 oxyCODONE-APAP 5-325MG [Percocet 1 each PO Q4HR PRN #18 tab 01/17/19 5-325 mg] Cephalexin [Keflex] 500 mg PO Q6HR 10 Days #40 cap 03/07/20 Sulfamethox-Tmp 800-160Mg [Bactrim 1 tab PO Q12HR 10 Days #20 tab 03/07/20 DS 800-160 mg] Allergies Allergy/AdvReac Type Severity Reaction Status Date / Time No Known Allergies Allergy Verified 06/08/20 13:38 Review of Systems ROS Statement: Those systems with pertinent positive or pertinent negative responses have been documented in the HPI. ROS Other: All systems not noted in ROS Statement are negative. Past Medical History Past Medical History: Renal Disease Additional Past Medical History / Comment(s): Hepatic infarction History of Any Multi-Drug Resistant Organisms: None Reported Past Surgical History: Cholecystectomy, Hernia Repair Additional Past Surgical History / Comment(s): 2X Hernia repair and cholecystectomy, liver infarction Past Anesthesia/Blood Transfusion Reactions: No Reported Reaction Past Psychological History: No Psychological Hx Reported Smoking Status: Current every day smoker Past Alcohol Use History: Daily Past Drug Use History: None Reported - Past Family History Father Family Medical History: Hypertension Mother History Unknown: Yes General Exam Limitations: no limitations Course Vital Signs 06/08/20 06/08/20 13:36 15:15 Temperature 102.0 F H 99.8 F H Pulse Rate 125 H 108 H Respiratory 20 18 Rate Blood Pressure 146/98 133/58 O2 Sat by Pulse 99 97 Oximetry Medical Decision Making - Medical Decision Making On arrival patient's placed into the hallway 21. A thorough history and physical exam was performed. He was given a dose of Motrin for his fever. Profile B is established. Patient given Unasyn. Laboratory says her conducted with demonstrate a white count 6.9. Liver enzymes are elevated. X-ray is performed which demonstrates diffuse subcutaneous edema however no air. Vitals are obtained and temp is improved as well as heart rate. Discussed results the patient. Discussed case with Dr. Cornejo who accepted admission. - Lab Data Result diagrams: 06/08/20 14:24 06/08/20 14:24 Lab Results 06/08/20 06/08/20 Range/Units 14:24 14:24 WBC 16.9 H (3.8-10.6) k/uL RBC 5.35 (4.30-5.90) m/uL Hgb 16.9 (13.0-17.5) gm/dL Hct 47.6 (39.0-53.0) % MCV 89.1 (80.0-100.0) fL MCH 31.6 (25.0-35.0) pg MCHC 35.4 (31.0-37.0) g/dL RDW 11.7 (11.5-15.5) % Plt Count 127 L (150-450) k/uL MPV 8.1 Neutrophils % 88 % Lymphocytes % 5 % Monocytes % 4 % Eosinophils % 0 % Basophils % 2 % Neutrophils # 14.9 H (1.3-7.7) k/uL Lymphocytes # 0.8 L (1.0-4.8) k/uL Monocytes # 0.7 (0-1.0) k/uL Eosinophils # 0.1 (0-0.7) k/uL Basophils # 0.3 H (0-0.2) k/uL Sodium 134 L (137-145) mmol/L Potassium 4.4 (3.5-5.1) mmol/L Chloride 99 (98-107) mmol/L Carbon Dioxide 31 H (22-30) mmol/L Anion Gap 4 mmol/L BUN 16 (9-20) mg/dL Creatinine 1.15 (0.66-1.25) mg/dL Est GFR (CKD-EPI)AfAm >90 (>60 ml/min/1.73 sqM) Est GFR (CKD-EPI)NonAf 80 (>60 ml/min/1.73 sqM) Glucose 117 H (74-99) mg/dL Calcium 9.0 (8.4-10.2) mg/dL Total Bilirubin 0.8 (0.2-1.3) mg/dL AST 72 H (17-59) U/L ALT 153 H (4-49) U/L Alkaline Phosphatase 57 (38-126) U/L C-Reactive Protein 242.9 H (<10.0) mg/L Total Protein 7.9 (6.3-8.2) g/dL Albumin 4.7 (3.5-5.0) g/dL Disposition Clinical Impression: Cellulitis Disposition: ADMITTED IP TO THIS HOSP Condition: Stable Is patient prescribed a controlled substance at d/c from ED?: No Referrals: Shanice Jean DO [Primary Care Provider] - 1-2 days Decision to Admit Reason: Admit from EC Decision Date: 06/08/20 Decision Time: 15:57
[2020-06-08] MEDS ORDERED: NALOXONE 0.4 MG/ML 1 ML VIAL IV PRN (15:57)
[2020-06-08] MEDS ORDERED: VANCOMYCIN IV PER PHARMACY 1 EACH MISC MISCELLANE PRN (15:59)
[2020-06-08] MEDS ORDERED: VANCOMYCIN 1,750 MG in SODIUM CHLORIDE 0.9% 500 ML 500 ML IVPB STA (16:06)
[2020-06-08] MEDS ORDERED: ENOXAPARIN 40 MG/0.4 ML SYRINGE SQ STA (16:08)
[2020-06-09] MEDS ORDERED: ENOXAPARIN 40 MG/0.4 ML SYRINGE SQ STA (00:17)
[2020-06-09] MEDS: ACETAMINOPHEN TAB 325 MG TAB PO PRN ×2 (01:10→20:36)
[2020-06-09] MEDS: SODIUM CHLORIDE 0.9% 1,000 ML IV SCH ×4 (01:14→22:44)
[2020-06-09 04:55] LABS: Basophils # (A) 0.1 k/uL (0-0.2); Basophils % (A) 0 %; Eosinophils # (A) 0.1 k/uL (0-0.7); Eosinophils % (A) 1 %; HCT 40.5 % (39.0-53.0); HGB 14.7 gm/dL (13.0-17.5); Lymphocytes # (A) 1.6 k/uL (1.0-4.8); Lymphocytes % (A) 11 %; MCH 32.4 pg (25.0-35.0); MCHC 36.3 g/dL (31.0-37.0); MCV 89.4 fL (80.0-100.0); Mean Platelet Volume 8.2; Monocytes # (A) 0.6 k/uL (0-1.0); Monocytes % (A) 5 %; Neutrophils # (A) 11.6 k/uL (1.3-7.7); Neutrophils % (A) 82 %; Platelet Count 115 k/uL (150-450); RBC 4.53 m/uL (4.30-5.90); RDW 11.8 % (11.5-15.5); WBC 14.2 k/uL (3.8-10.6)
[2020-06-09 11:23] LABS: African American GFR (CKD) 123.4 (60.0-200.0); Anion Gap 5.4 mmol/L (4.00-12.00); BUN/Creat Ratio 16.67 Ratio (12.00-20.00); Calcium 8.1 mg/dL (8.7-10.3); Carbon Dioxide 24.6 mmol/L (21.6-31.8); Non-African American GFR(CKD) 106.5 (60.0-200.0); Potassium 3.9 mmol/L (3.5-5.5)
[2020-06-09] MEDS: VANCOMYCIN 1,750 MG in SODIUM CHLORIDE 0.9% 500 ML 500 ML IVPB SCH ×2 (11:38→20:25)
[2020-06-09] MEDS: AMPICILLIN-SULBACTAM 3 GM in SODIUM CHLORIDE 0.9% 100 ML IVPB SCH ×2 (15:00→18:41)
--- NOTE | 2020-06-09 21:35 | P.HPIM ---
History of Present Illness H&P Date: 06/09/20 Chief Complaint: fever, LLE redness and swelling Monroe Jean is a 40 yo M with PMH significant for liver infarction as well as renal infarction 1 year ago, at that time hematology workup negative for hypercoagulable state. He was discharged on aspirin and eliquis although he notes he stopped taking the eliquis shortly after his last admission. Pt does continue to smoke 1 PPD. He states he recently had a LLE cellulitis that was successfully treated although a region of skin along his anterior womack continued to remain thickened and scaly. He notes that last night his leg became red and warm and this morning he woke up with a fever so came to the hospital. On presen tation he was febrile to 102, pulse 125, WBC 17k, CRP 250, COVID negative. XR of his LLE with soft tissue prominence and no bony involvement. Pt was started on unasyn and vancomycin as well as lovenox, although he declined lovenox. Review of Systems All systems: negative Constitutional: Reports fever, Reports sweats, Denies chills Eyes: denies blurred vision, denies pain Ears, nose, mouth and throat: Denies headache, Denies sore throat Cardiovascular: Denies chest pain, Denies shortness of breath Respiratory: Denies cough Gastrointestinal: Denies abdominal pain, Denies diarrhea, Denies nausea, Denies vomiting Musculoskeletal: Denies myalgias Integumentary: Reports as per HPI, Reports color changes, Reports foot/leg ulcers, Reports wounds, Denies pruritus, Denies rash Neurological: Denies numbness, Denies weakness Psychiatric: Denies anxiety, Denies depression Endocrine: Denies fatigue, Denies weight change Past Medical History Past Medical History: Hyperlipidemia, Hypertension, Renal Disease Additional Past Medical History / Comment(s): Hepatic infarction, Kidney infarction, pancreatic infarction History of Any Multi-Drug Resistant Organisms: None Reported Past Surgical History: Cholecystectomy, Hernia Repair Additional Past Surgical History / Comment(s): 2X Hernia repair and cholecystectomy, liver infarction Past Anesthesia/Blood Transfusion Reactions: No Reported Reaction Past Psychological History: No Psychological Hx Reported Smoking Status: Current every day smoker Past Alcohol Use History: Daily Past Drug Use History: None Reported - Past Family History Father Family Medical History: Hypertension Mother History Unknown: Yes Medications and Allergies Home Medications Medication Instructions Recorded Confirmed Type No Known Home Medications 06/08/20 06/08/20 History Allergies Allergy/AdvReac Type Severity Reaction Status Date / Time No Known Allergies Allergy Verified 06/08/20 15:59 Physical Exam Vitals: Vital Signs Temp Pulse Pulse Pulse Resp BP BP 06/09/20 20:01 100.0 F H 76 16 112/70 06/09/20 15:30 98.4 F 93 18 131/82 06/09/20 07:18 98.0 F 97 18 115/70 06/09/20 01:41 99.6 F 109 H 18 137/77 06/08/20 23:29 100.3 F H 120 H 20 157/84 06/08/20 22:15 98.9 F 110 H 18 142/82 Pulse Ox 06/09/20 20:01 97 06/09/20 15:30 99 06/09/20 07:18 98 06/09/20 01:41 96 06/08/20 23:29 97 06/08/20 22:15 98 Intake and Output 06/09/20 06/09/20 06/09/20 06:59 14:59 22:59 Other: Voiding Method Toilet # Voids 1 1 Weight 83.915 kg General: well nourished, well developed, NAD. Vitals reviewed Eyes: PERRL, EOMI, conjunctiva normal HENT: normocephalic, mucus membranes moist Neck: supple, no JVD Lungs: normal respiratory effort, no wheezes or rales CV: Regular rate and rhythm, no murmur. Peripheral pulses 2+ Abdomen: soft, nondistended, no organomegaly Lymph: no cervical or axillary LAD Skin: warm and dry. LLE with erythema, warmth and tenderness along anterior LLE. No open cuts or sores Neuro: A&Ox3, normal mood and affect Results CBC & Chem 7: 06/09/20 04:35 06/09/20 04:35 Labs: Abnormal Lab Results - Last 24 Hours (Table) 06/09/20 06/09/20 Range/Units 04:35 04:35 WBC 14.2 H (3.8-10.6) k/uL Plt Count 115 L (150-450) k/uL Neutrophils # 11.6 H (1.3-7.7) k/uL Calcium 8.1 L (8.7-10.3) mg/dL Microbiology - Last 24 Hours (Table) 06/08/20 14:24 Blood Culture - Preliminary Blood No Growth after 24 hours Thrombosis Risk Factor Assmnt - Choose All That Apply Each Factor Represents 1 point: Swollen legs (current) Each Risk Factor Represents 3 Points: History of DVT/PE Thrombosis Risk Factor Assessment Total Risk Factor Score: 4 Thrombosis Risk Factor Assessment Level: Moderate Risk Assessment and Plan (1) Sepsis due to cellulitis Current Visit: Yes Status: Acute Code(s): L03.90 - CELLULITIS, UNSPECIFIED; A41.9 - SEPSIS, UNSPECIFIED ORGANISM SNOMED Code(s): 06865235 (2) Tobacco abuse Current Visit: Yes Status: Acute Code(s): Z72.0 - TOBACCO USE SNOMED Code(s): 629299210 (3) History of blood clotting disorder Current Visit: Yes Status: Acute Code(s): Z86.2 - PRSNL HISTORY OF DIS OF THE BLD/BLD-FORM [facility] SN[facility] Code(s): 716141501 (4) Medical non-compliance Current Visit: Yes Status: Acute Code(s): Z91.19 - PATIENT'S NONCOMPLIANCE W OTH MEDICAL TREATMENT AND REGIMEN SNOMED Code(s): 926546075 (5) Cellulitis Current Visit: Yes Status: Acute Code(s): L03.90 - CELLULITIS, UNSPECIFIED SNOMED Code(s): 676423908 Plan: 1. Sepsis due to LLE cellulitis. Continue unasyn and vancomycin, consult ID. Follow blood cultures. AM labs 2. History of renal and hepatic infarction, suspected hypercoagulable state. Recommended pt resume eliquis as likely contributing to cellulitis. Continue ASA 3. Tobacco abuse. Smoking cessation counseling DVT prophylaxis lovenox
[2020-06-09] MEDS: NYSTATIN 100,000UNIT/GM CREAM 30 GM TUBE TOPICAL SCH (22:43)
--- NOTE | 2020-06-10 00:03 | P.CONS ---
History of Present Illness - Reason for Consult Consult date: 06/09/20 left leg cellulitis Requesting physician: Reed Hyman - Chief Complaint left leg pain and swelling x 1 day - History of Present Illness Patient is a 40-year-old male with a past medical history significant for left lower extremity cellulitis presented to the ER at [facility] yesterday evaluation of left lower extremity pain swelling redness and that started the night before he presented to the hospital patient did have diffuse swelling redness of the left lower extremity he has been complaining of pain to the left ankle more of a sharp in nature intensity 6-7 out of 10 no radiation patient currently not have any open wound or any drainage patient will presented to the hospital have fever of 102 degree for an height patient did have x-rays of the left leg which was negative for any fracture patient was started on vancomycin and Unasyn admitted to the hospital infectious disease was consulted for further management of antibiotic therapy. Review of Systems Positive point has been mentioned in HPI rest of the systems are negative Past Medical History Past Medical History: Hyperlipidemia, Hypertension, Renal Disease Additional Past Medical History / Comment(s): Hepatic infarction, Kidney infarction, pancreatic infarction History of Any Multi-Drug Resistant Organisms: None Reported Past Surgical History: Cholecystectomy, Hernia Repair Additional Past Surgical History / Comment(s): 2X Hernia repair and cholecystectomy, liver infarction Past Anesthesia/Blood Transfusion Reactions: No Reported Reaction Past Psychological History: No Psychological Hx Reported Smoking Status: Current every day smoker Past Alcohol Use History: Daily Past Drug Use History: None Reported - Past Family History Father Family Medical History: Hypertension Mother History Unknown: Yes Medications and Allergies Home Medications Medication Instructions Recorded Confirmed Type No Known Home Medications 06/08/20 06/08/20 History Allergies Allergy/AdvReac Type Severity Reaction Status Date / Time No Known Allergies Allergy Verified 06/08/20 15:59 Physical Exam Vitals: Vital Signs Temp Pulse Pulse Pulse Resp BP BP 06/09/20 20:01 100.0 F H 76 16 112/70 06/09/20 15:30 98.4 F 93 18 131/82 06/09/20 07:18 98.0 F 97 18 115/70 06/09/20 01:41 99.6 F 109 H 18 137/77 06/08/20 23:29 100.3 F H 120 H 20 157/84 06/08/20 22:15 98.9 F 110 H 18 142/82 Pulse Ox 06/09/20 20:01 97 06/09/20 15:30 99 06/09/20 07:18 98 06/09/20 01:41 96 06/08/20 23:29 97 06/08/20 22:15 98 Intake and Output 06/09/20 06/09/20 06/09/20 06:59 14:59 22:59 Other: Voiding Method Toilet # Voids 1 1 Weight 83.915 kg GENERAL DESCRIPTION: Middle-aged male lying in bed, no distress. No tachypnea or accessory muscle of respiration use. HEENT: Shows Pallor , no scleral icterus. Oral mucous membrane is dry. NECK: Trachea central, no thyromegaly. LUNGS: Unlabored breathing. Clear to auscultation anteriorly. No wheeze or crackle. HEART: S1, S2, regular rate and rhythm. ABDOMEN: Soft, no tenderness , guarding or rigidity EXTREMITIES: Diffuse swelling redness of the left lower extremity with evidence of athlete's foot. SKIN: No rash, no masses palpable. NEUROLOGICAL: The patient is awake, alert, oriented x3, mood and affect normal. Results CBC & Chem 7: 06/09/20 04:35 06/09/20 04:35 Labs: Abnormal Lab Results - Last 24 Hours (Table) 06/09/20 06/09/20 Range/Units 04:35 04:35 WBC 14.2 H (3.8-10.6) k/uL Plt Count 115 L (150-450) k/uL Neutrophils # 11.6 H (1.3-7.7) k/uL Calcium 8.1 L (8.7-10.3) mg/dL Microbiology - Last 24 Hours (Table) 06/08/20 14:24 Blood Culture - Preliminary Blood No Growth after 24 hours Assessment and Plan Assessment: 1-patient presented to hospital with sepsis and respiratory fever tachycardia elevated white count sources acute left lower extremity cellulitis in this patient diffuse swelling redness and evidence of athlete's foot likely streptococcal cellulitis 2-patient with athlete's foot likely responsible for these recurrent episodes (1) Cellulitis Current Visit: Yes Status: Acute Code(s): L03.90 - CELLULITIS, UNSPECIFIED SNOMED Code(s): 698143626 (2) Sepsis due to cellulitis Current Visit: Yes Status: Acute Code(s): L03.90 - CELLULITIS, UNSPECIFIED; A41.9 - SEPSIS, UNSPECIFIED ORGANISM SNOMED Code(s): 92032325 Plan: 1-discontinue vancomycin and Unasyn 2-start the patient on cefazolin 2 g every 8 hour 3-nystatin cream in between toes twice a day We will follow on clinical condition and cultures to further adjust medication if needed Thank you for this consultation we will follow the patient along with you Time with Patient: Greater than 30
[2020-06-10] MEDS: ACETAMINOPHEN TAB 325 MG TAB PO PRN ×2 (08:47→20:42)
[2020-06-10] MEDS: ASPIRIN 81 MG PO SCH (08:47)
[2020-06-10] MEDS: ENOXAPARIN 40 MG/0.4 ML SYRINGE SQ SCH (08:48)
[2020-06-10] MEDS: SODIUM CHLORIDE 0.9% 1,000 ML IV SCH ×3 (08:48→23:56)
[2020-06-10] MEDS: NYSTATIN 100,000UNIT/GM CREAM 30 GM TUBE TOPICAL SCH ×2 (09:35→20:39)
[2020-06-10 10:03] LABS: African American GFR (CKD) 129.5 (60.0-200.0); Non-African American GFR(CKD) 111.7 (60.0-200.0)
--- NOTE | 2020-06-10 14:17 | P.PN ---
Subjective Progress Note Date: 06/10/20 Monroe Jean is a 40 yo M with PMH significant for liver infarction as well as renal infarction 1 year ago, at that time hematology workup negative for hypercoagulable state. He was discharged on aspirin and eliquis although he notes he stopped taking the eliquis shortly after his last admission. Pt does continue to smoke 1 PPD. He states he recently had a LLE cellulitis that was successfully treated although a region of skin along his anterior womack continued to remain thickened and scaly. He notes that last night his leg became red and warm and this morning he woke up with a fever so came to the hospital. On presentation he was febrile to 102, pulse 125, WBC 17k, CRP 250, COVID negative. XR of his LLE with soft tissue prominence and no bony involvement. Pt was started on unasyn and vancomycin as well as lovenox, although he declined lovenox. Dr. Reed Hyman patient and we are covering. 06/10/2020 Patient is seen and evaluated in follow-up with no acute overnight issues. Infectious disease is following and patient is maintained on cefazolin IV and Unasyn and vancomycin have been discontinued. CBC has been trending down and will repeat a.m. labs. Creatinine also improved at 0.8. Patient is tolerating a diet with no reports of nausea or vomiting noted and IV fluids have been discontinued. Patient had a low-grade temp of 100.0 last night although has remained afebrile thus far today. Review of systems: Constitutional: No reports of fatigue, fever, or chills Cardiovascular: No reports of chest pain or palpitations Respiratory: No reports of shortness of breath or cough GI: No reports of nausea, vomiting, or diarrhea : No reports of dysuria or retention Neurovascular: No reports of weakness or numbness All medications have been reviewed Objective - Vital Signs Vital signs: Vital Signs Temp 98.2 F 06/10/20 07:00 Pulse 85 06/10/20 07:00 Resp 18 06/10/20 07:00 BP 127/78 06/10/20 07:00 Pulse Ox 99 06/10/20 07:00 Intake & Output 06/09/20 06/10/20 06/10/20 18:59 06:59 18:59 Other: Voiding Method Toilet # Voids 1 - Exam Gen: This is a 40-year-old male awake, alert and oriented 3, well-developed, well-nourished. HEENT: Head is atraumatic, normocephalic. Pupils equal, round. Sclerae is anicteric. NECK: Supple. No JVD. No lymphadenopathy. No thyromegaly. LUNGS: Clear to auscultation. No wheezes or rhonchi. No intercostal retractions. HEART: Regular rate and rhythm. No murmur. ABDOMEN: Soft. Bowel sounds are present. No masses. No tenderness. EXTREMITIES: No pedal edema. No calf tenderness. Lower extremity continues to have some erythema with warmth and tenderness on the womack although is slightly improved, no open skin lesions noted NEUROLOGICAL: Patient is awake, alert and oriented x3. Cranial nerves 2 through 12 are grossly intact. - Labs CBC & Chem 7: 06/09/20 04:35 06/10/20 05:19 Labs: Microbiology - Last 24 Hours (Table) 06/08/20 14:24 Blood Culture - Preliminary Blood No Growth after 24 hours Assessment and Plan Assessment: Sepsis secondary to left lower extremity cellulitis, present on admission Mild leukocytosis, secondary to above History of blood clotting disorder Medication and medical noncompliance with treatments and regimens Left lower extremity cellulitis Tobacco abuse: Smoking cessation counseling provided Coping 19 ruled out, testing was negative DVT prophylaxis: Early ambulation Plan: Continue current medications, management, and symptomatic treatment. IV antibiotics have been transitioned to cefazolin and vancomycin and Unasyn have been discontinued. Infectious Disease is following. Will repeat a.m. labs and monitor closely. Further recommendations to follow depending on the clinical course of the patient.
--- NOTE | 2020-06-10 15:58 | US ---
EXAMINATION TYPE: US venous doppler duplex LE LT DATE OF EXAM: 06/10/2020 3:51 PM COMPARISON: NONE CLINICAL HISTORY: Redness and swelling of left lower extremity. SIDE PERFORMED: Left TECHNIQUE: The lower extremity deep venous system is examined utilizing real time linear array sonog baltazar with graded compression, doppler sonography and color-flow sonography. VESSELS IMAGED: Common Femoral Vein Deep Femoral Vein Greater Saphenous Vein * Femoral Vein Popliteal Vein Small Saphenous Vein * Proximal Calf Veins (* superficial vessels) Left Leg: Negative for DVT IMPRESSION: Left lower extremity ultrasound negative for deep venous thrombosis
--- NOTE | 2020-06-10 23:01 | PN ---
PROGRESS NOTE DATE OF SERVICE: 06/10/2020 REASON FOR FOLLOWUP: Left lower extremity cellulitis and INTERVAL HISTORY: The patient is currently afebrile. Last temperature has been 100 degrees last night. The patient denies having any chest pain or shortness of breath or cough. Left leg redness has improved. Still having swelling. No nausea, no vomiting or diarrhea. PHYSICAL EXAMINATION: Blood pressure 121/77 with a pulse of 82, temperature 98.1. He is 97% on 99% room air. General description is a middle-aged male lying in bed in no distress. Respiratory system: Unlabored breathing. Clear to auscultation anteriorly. Heart S1, S2. Regular rate and rhythm. Abdomen: Soft, no tenderness. Left leg swelling persists. Redness improved. LABS: Blood culture has been negative. DIAGNOSTIC IMPRESSION AND PLAN: 1. Patient with acute left lower extremity cellulitis in this patient who did have diffuse swelling and redness, likely streptococcal disease. Patient is currently covered with cefepime 2 gm q8 hours. We will apply Murray wrap to keep the swelling down. 2. Athlete's foot. Continue nystatin cream between the toes twice a day. The patient has been educated about his condition, how to prevent recurrent infection. MMODL / IJN: [id number] /
[2020-06-11 06:56] LABS: Basophils # (A) 0.1 k/uL (0-0.2); Basophils % (A) 1 %; Eosinophils # (A) 0.2 k/uL (0-0.7); Eosinophils % (A) 3 %; HCT 40.2 % (39.0-53.0); HGB 13.9 gm/dL (13.0-17.5); Lymphocytes # (A) 1.9 k/uL (1.0-4.8); Lymphocytes % (A) 28 %; MCH 31.3 pg (25.0-35.0); MCHC 34.7 g/dL (31.0-37.0); MCV 90.3 fL (80.0-100.0); Mean Platelet Volume 8.4; Monocytes # (A) 0.5 k/uL (0-1.0); Monocytes % (A) 8 %; Neutrophils # (A) 3.9 k/uL (1.3-7.7); Neutrophils % (A) 56 %; Platelet Count 167 k/uL (150-450); RBC 4.45 m/uL (4.30-5.90); WBC 6.9 k/uL (3.8-10.6)
[2020-06-11] MEDS: ENOXAPARIN 40 MG/0.4 ML SYRINGE SQ SCH (08:38)
[2020-06-11] MEDS: ASPIRIN 81 MG PO SCH (08:38)
[2020-06-11] MEDS: NYSTATIN 100,000UNIT/GM CREAM 30 GM TUBE TOPICAL SCH (08:38)
[2020-06-11 12:47] VITALS: RESP 16
[2020-06-11 14:10] VITALS: BP 142/92; PULSE 72; TEMP 97.5
--- NOTE | 2020-06-11 15:03 | P.DS ---
Providers Date of admission: 06/08/20 16:31 Expected date of discharge: 06/11/20 Attending physician: Reed Hyman MD Consults: 06/08/20 16:07 Consult Physician Stat Consulting Provider: Tawana Us Consult Reason/Comments: lle cellulitis - recurrent, sepsis Do you want consulting provider notified?: Yes Primary care physician: Shanice Jean Hospital Course: Final diagnosis Sepsis secondary to left lower extremity cellulitis, present on admission Mild leukocytosis, secondary to above History of blood clotting disorder Medication and medical noncompliance with treatments and regimens Left lower extremity cellulitis Tobacco abuse: Smoking cessation counseling provided Covid 19 ruled out, testing was negative DVT prophylaxis Discharge disposition Patient is being discharged in a stable condition with guarded prognosis to home. Patient will follow-up with Dr. Jean in the outpatient setting upon discharge. Patient is to continue with oral antibiotics in the form of Keflex 500 mg 3 times daily for the next 10 days to complete the course. Total time taken is greater than 35 minutes. Hospital course This is a 40-year-old male who was recently admitted with left lower extremity cellulitis along with fever and was being closely monitored. Patient was seen and evaluated by infectious disease and initiated on IV antibiotics in the form of cefazolin and vancomycin and Unasyn were discontinued. Patient responded well to the cefazolin and will continue with Keflex 500 mg 3 times daily for the next 10 days to complete a course. Patient swelling and redness have significantly improved of the left lower extremity and patient will continue with local wound care along with Murray wrap and elevation of the lower extremity while at rest. Patient states the pain has resolved and feeling much better today. Currently no reports of chest pain, shortness of breath, or palpitations. Patient is afebrile. No reports of nausea or vomiting and patient is to lerating diet. Patient will be discharged home today. On exam vital signs are stable. Temp is 97.8F, pulse is 77, respirations are 20, blood pressure is 139/84, oxygen saturation is 98% on room air. Cardio S1, S2 are muffled. Respiratory system shows diminished breath sounds at the bases with no wheezing or rhonchi noted. Abdomen is soft and nontender. Nervous system shows no focal deficits. Please refer to medication reconciliation sheet for a list of medications. Patient Condition at Discharge: Good Plan - Discharge Summary New Discharge Prescriptions: New Aspirin 81 mg PO DAILY 30 Days #30 chew Nystatin 100,000Unit/gm Cream [Mycostatin Cream] 1 applic TOPICAL BID applic Acetaminophen Tab [Tylenol] 650 mg PO Q6HR PRN tab PRN Reason: Fever And/ Or Pain Cephalexin [Keflex] 500 mg PO Q6HR 10 Days #40 cap Discharge Medication List Acetaminophen Tab [Tylenol] 650 mg PO Q6HR PRN tab 06/11/20 [Rx] Aspirin 81 mg PO DAILY 30 Days #30 chew 06/11/20 [Rx] Cephalexin [Keflex] 500 mg PO Q6HR 10 Days #40 cap 06/11/20 [Rx] Nystatin 100,000Unit/gm Cream [Mycostatin Cream] 1 applic TOPICAL BID applic 06/11/20 [Rx] Follow up Appointment(s)/Referral(s): Shanice Jean DO [Primary Care Provider] - 06/18/20 10:00 am (patient is seen in the [place] office) Patient Instructions/Handouts: Cellulitis (DC) Activity/Diet/Wound Care/Special Instructions: Activity Limited until follow-up Follow-up with primary care provider upon discharge Continue with antibiotics as discussed and prescribed until finished Continue to elevate the lower extremity while at rest Continue with Murray wrap from toes up to knees Continue with local wound care Continue use nystatin topical Discharge Disposition: HOME SELF-CARE
== END 2020-06-11 14:28 | disposition home or self-care (01) | DRG 872 ==
LOC: EC 13:23 → 5NMEDONC 16:31
PROVIDERS: ADMIT Family Medicine; ATTEND Family Medicine
DX: A40.9 Streptococcal sepsis, unspecified (principal); L03.116 Cellulitis of left lower limb; D68.59 Other primary thrombophilia; B35.3 Tinea pedis; E78.5 Hyperlipidemia, unspecified; Z71.6 Tobacco abuse counseling; F17.210 Nicotine dependence, cigarettes, uncomplicated; I10 Essential (primary) hypertension; Z20.828 Contact with and (suspected) exposure to other viral communicable diseases; Z79.01 Long term (current) use of anticoagulants; Z79.82 Long term (current) use of aspirin; Z82.49 Family history of ischemic heart disease and other diseases of the circulatory system; Z91.19 Patient's noncompliance with other medical treatment and regimen; Z91.14 Patient's other noncompliance with medication regimen; Z90.49 Acquired absence of other specified parts of digestive tract; Z86.79 Personal history of other diseases of the circulatory system; Z79.899 Other long term (current) drug therapy
CPT/HCPCS: 36415; 80048; 80053; 82565; 83605; 85025; 86140; 87040; 87635; 96365; 96366; 96367; 99284

== ENCOUNTER → 2020-09-14 | Outpatient (CLI) | payer BC | END | disposition home or self-care (01) | LOC: LABWHC1 16:36 | PROVIDERS: ATTEND Emergency Medicine | DX: Z20.822 Contact with and (suspected) exposure to COVID-19 (principal) | CPT/HCPCS: U0003; U0005 ==

== ENCOUNTER 2021-05-14 11:31 | Observation (INO) | payer BC ==
[2021-05-14] MEDS ORDERED: ACETAMINOPHEN TAB 500 MG TAB PO STA (12:17)
[2021-05-14] MEDS ORDERED: SODIUM CHLORIDE 0.9% 1,000 ML IV STA (12:17)
[2021-05-14] MEDS ORDERED: IBUPROFEN 600 MG TAB PO STA (12:17)
[2021-05-14 13:16] LABS: Basophils # (A) 0.1 k/uL (0-0.2); Basophils % (A) 0 %; Eosinophils # (A) 0.2 k/uL (0-0.7); Eosinophils % (A) 1 %; HCT 43.1 % (39.0-53.0); HGB 15.7 gm/dL (13.0-17.5); Hyperchromasia Slight; Lymphocytes # (A) 1.5 k/uL (1.0-4.8); Lymphocytes % (A) 6 %; MCH 32.1 pg (25.0-35.0); MCHC 36.4 g/dL (31.0-37.0); MCV 88.4 fL (80.0-100.0); Mean Platelet Volume 8.5; Monocytes # (A) 0.7 k/uL (0-1.0); Monocytes % (A) 3 %; Neutrophils # (A) 21.8 k/uL (1.3-7.7); Neutrophils % (A) 90 %; Platelet Count 154 k/uL (150-450); RBC 4.88 m/uL (4.30-5.90); RDW 12.6 % (11.5-15.5); WBC 24.3 k/uL (3.8-10.6)
[2021-05-14 13:25] LABS: Appearance,Urine Clear (Clear); Bilirubin,Urine Negative (Negative); Blood,Urine Small (Negative); Color,Urine Yellow; Glucose,Urine (UA) Negative (Negative); Ketones,Urine Negative (Negative); Leukocyte Esterase,Urine Negative (Negative); Nitrite,Urine Negative (Negative); Protein,Urine Trace (Negative); RBC,Urine 2 /hpf (0-5); Specific Gravity,Urine 1.025 (1.001-1.035); Squamous Epithelial Cell,Urine <1 /hpf (0-4); Urobilinogen,Urine <2.0 mg/dL (<2.0); WBC,Urine 1 /hpf (0-5)
[2021-05-14 13:34] LABS: ALT 72 U/L (4-49); AST 38 U/L (17-59); African American GFR (CKD) >90 (>60 ml/min/1.73 sqM); Albumin 4.3 g/dL (3.5-5.0); Alkaline Phosphatase 47 U/L (38-126); Anion Gap 8 mmol/L; Blood Urea Nitrogen 15 mg/dL (9-20); Calcium 8.9 mg/dL (8.4-10.2); Carbon Dioxide 22 mmol/L (22-30); Chloride 107 mmol/L (98-107); Glucose 95 mg/dL (74-99); Non-African American GFR(CKD) >90 (>60 ml/min/1.73 sqM); Potassium 3.8 mmol/L (3.5-5.1); Sodium 137 mmol/L (137-145); Total Bilirubin 0.7 mg/dL (0.2-1.3); Total Protein 7.3 g/dL (6.3-8.2)
[2021-05-14] MEDS ORDERED: PIPERACILLIN-TAZOBACTAM 3.375 GM in SODIUM CHLORIDE 0.9% 100 ML IVPB STA (14:25)
[2021-05-14] MEDS ORDERED: VANCOMYCIN IV PER PHARMACY 1 EACH MISC MISCELLANE PRN (14:26)
--- NOTE | 2021-05-14 14:29 | ED ---
Extremity Problem HPI - General Chief complaint: Extremity Problem,Nontraumatic Stated complaint: Leg infection Time Seen by Provider: 05/14/21 11:57 Source: patient, RN notes reviewed Mode of arrival: ambulatory Limitations: no limitations - History of Present Illness Initial comments: This a 41-year-old male presents emergency Department chief complaint of left lower extremity redness, cellulitis. Patient states she's had this recurrent issue the last 3 years. He states he just recent started noted that he didn't feel well developed a fever, redness to his leg and mild discomfort he states his tetanus painful usual. He hasn't that there is a slight cough and cold like symptoms denies any COVID-19 border. Patient has no flank nausea vomiting diarrhea. Patient states she has no history DVT. - Related Data Previous Rx's Medication Instructions Recorded Aspirin 81 mg PO DAILY 30 Days #30 chew 06/11/20 Allergies Allergy/AdvReac Type Severity Reaction Status Date / Time No Known Allergies Allergy Verified 05/14/21 13:18 Review of Systems ROS Statement: Those systems with pertinent positive or pertinent negative responses have been documented in the HPI. ROS Other: All systems not noted in ROS Statement are negative. Past Medical History Past Medical History: Renal Disease Additional Past Medical History / Comment(s): Hepatic infarction History of Any Multi-Drug Resistant Organisms: None Reported Past Surgical History: Cholecystectomy, Hernia Repair Additional Past Surgical History / Comment(s): 2X Hernia repair and cholecystectomy, liver infarction Past Anesthesia/Blood Transfusion Reactions: No Reported Reaction Past Psychological History: No Psychological Hx Reported Smoking Status: Current every day smoker Past Alcohol Use History: Daily Past Drug Use History: None Reported - Past Family History Father Family Medical History: Hypertension Mother History Unknown: Yes General Exam Limitations: no limitations General appearance: alert, in no apparent distress Head exam: Present: atraumatic, normocephalic, normal inspection Eye exam: Present: normal appearance, PERRL, EOMI. Absent: scleral icterus, conjunctival injection, periorbital swelling ENT exam: Present: normal exam, normal oropharynx, mucous membranes moist Neck exam: Present: normal inspection, full ROM. Absent: tenderness, meningismus, lymphadenopathy Respiratory exam: Present: normal lung sounds bilaterally. Absent: respiratory distress, wheezes, rales, rhonchi, stridor Cardiovascular Exam: Present: normal rhythm, tachycardia, normal heart sounds. Absent: systolic murmur, diastolic murmur, rubs, gallop, clicks Extremities exam: Present: other (Left lower extremity there is some erythema increased warmth in the anterior surface of the left lower leg, neurovascular intact) Course Vital Signs 05/14/21 11:40 Temperature 100.7 F H Pulse Rate 112 H Respiratory 19 Rate Blood Pressure 130/78 O2 Sat by Pulse 99 Oximetry Medical Decision Making - Medical Decision Making Patient has evidence of left lower leg cellulitis which has been recurrent, no crepitus or tenderness in the proximal leg patient has significant leukocytosis, fever, tachycardia will be admitted for IV antibiotics pending blood cultures. - Lab Data Result diagrams: 05/14/21 12:54 05/14/21 12:54 Lab Results 05/14/21 05/14/21 05/14/21 Range/Units 12:54 12:54 12:54 WBC 24.3 H (3.8-10.6) k/uL RBC 4.88 (4.30-5.90) m/uL Hgb 15.7 (13.0-17.5) gm/dL Hct 43.1 (39.0-53.0) % MCV 88.4 (80.0-100.0) fL MCH 32.1 (25.0-35.0) pg MCHC 36.4 (31.0-37.0) g/dL RDW 12.6 (11.5-15.5) % Plt Count 154 (150-450) k/uL MPV 8.5 Neutrophils % 90 % Lymphocytes % 6 % Monocytes % 3 % Eosinophils % 1 % Basophils % 0 % Neutrophils # 21.8 H (1.3-7.7) k/uL Lymphocytes # 1.5 (1.0-4.8) k/uL Monocytes # 0.7 (0-1.0) k/uL Eosinophils # 0.2 (0-0.7) k/uL Basophils # 0.1 (0-0.2) k/uL Hyperchromasia Slight Sodium 137 (137-145) mmol/L Potassium 3.8 (3.5-5.1) mmol/L Chloride 107 (98-107) mmol/L Carbon Dioxide 22 (22-30) mmol/L Anion Gap 8 mmol/L BUN 15 (9-20) mg/dL Creatinine 0.83 (0.66-1.25) mg/dL Est GFR (CKD-EPI)AfAm >90 (>60 ml/min/1.73 sqM) Est GFR (CKD-EPI)NonAf >90 (>60 ml/min/1.73 sqM) Glucose 95 (74-99) mg/dL Plasma Lactic Acid Ramez (0.7-2.0) mmol/L Calcium 8.9 (8.4-10.2) mg/dL Total Bilirubin 0.7 (0.2-1.3) mg/dL AST 38 (17-59) U/L ALT 72 H (4-49) U/L Alkaline Phosphatase 47 (38-126) U/L Total Protein 7.3 (6.3-8.2) g/dL Albumin 4.3 (3.5-5.0) g/dL Urine Color Yellow Urine Appearance Clear (Clear) Urine pH 6.0 (5.0-8.0) Ur Specific Cobalt 1.025 (1.001-1.035) Urine Protein Trace H (Negative) Urine Glucose (UA) Negative (Negative) Urine Ketones Negative (Negative) Urine Blood Small H (Negative) Urine Nitrite Negative (Negative) Urine Bilirubin Negative (Negative) Urine Urobilinogen <2.0 (<2.0) mg/dL Ur Leukocyte Esterase Negative (Negative) Urine RBC 2 (0-5) /hpf Urine WBC 1 (0-5) /hpf Ur Squamous Epith Cells <1 (0-4) /hpf Coronavirus (PCR) (Not Detectd) 05/14/21 05/14/21 Range/Units 12:54 13:25 WBC (3.8-10.6) k/uL RBC (4.30-5.90) m/uL Hgb (13.0-17.5) gm/dL Hct (39.0-53.0) % MCV (80.0-100.0) fL MCH (25.0-35.0) pg MCHC (31.0-37.0) g/dL RDW (11.5-15.5) % Plt Count (150-450) k/uL MPV Neutrophils % % Lymphocytes % % Monocytes % % Eosinophils % % Basophils % % Neutrophils # (1.3-7.7) k/uL Lymphocytes # (1.0-4.8) k/uL Monocytes # (0-1.0) k/uL Eosinophils # (0-0.7) k/uL Basophils # (0-0.2) k/uL Hyperchromasia Sodium (137-145) mmol/L Potassium (3.5-5.1) mmol/L Chloride (98-107) mmol/L Carbon Dioxide (22-30) mmol/L Anion Gap mmol/L BUN (9-20) mg/dL Creatinine (0.66-1.25) mg/dL Est GFR (CKD-EPI)AfAm (>60 ml/min/1.73 sqM) Est GFR (CKD-EPI)NonAf (>60 ml/min/1.73 sqM) Glucose (74-99) mg/dL Plasma Lactic Acid Ramez 1.4 (0.7-2.0) mmol/L Calcium (8.4-10.2) mg/dL Total Bilirubin (0.2-1.3) mg/dL AST (17-59) U/L ALT (4-49) U/L Alkaline Phosphatase (38-126) U/L Total Protein (6.3-8.2) g/dL Albumin (3.5-5.0) g/dL Urine Color Urine Appearance (Clear) Urine pH (5.0-8.0) Ur Specific Cobalt (1.001-1.035) Urine Protein (Negative) Urine Glucose (UA) (Negative) Urine Ketones (Negative) Urine Blood (Negative) Urine Nitrite (Negative) Urine Bilirubin (Negative) Urine Urobilinogen (<2.0) mg/dL Ur Leukocyte Esterase (Negative) Urine RBC (0-5) /hpf Urine WBC (0-5) /hpf Ur Squamous Epith Cells (0-4) /hpf Coronavirus (PCR) Not Detected (Not Detectd) Disposition Clinical Impression: Left leg cellulitis Disposition: ADMITTED IP TO THIS HOSP Referrals: Shanice Jean DO [Primary Care Provider] - 1-2 days
[2021-05-14] MEDS ORDERED: ACETAMINOPHEN TAB 325 MG TAB PO PRN (14:31)
[2021-05-14] MEDS ORDERED: HYDROcodone/APAP 5-325MG 1 EACH TAB PO PRN (14:31)
[2021-05-14] MEDS ORDERED: IBUPROFEN 400 MG TAB PO PRN (14:31)
[2021-05-14] MEDS ORDERED: NALOXONE 0.4 MG/ML 1 ML VIAL IV PRN (14:31)
[2021-05-14] MEDS ORDERED: VANCOMYCIN 1,500 MG in SODIUM CHLORIDE 0.9% 250 ML IVPB ONE (14:45)
--- NOTE | 2021-05-14 15:27 | XR ---
Left tibia and fibula. HISTORY: Infection. COMPARISON: 06/08/2020. TECHNIQUE: 4 views left tibia and fibula were obtained. There is no fracture, dislocation, intraosseous or intra-articular abnormality. There is no cortical destruction or periosteal reaction. There is no soft tissue gas or calcification. IMPRESSION: No significant abnormality seen. If there is a clinical suspicion for infection or fasciitis, then a MRI of the left lower extremity is recommended given its greater sensitivity
--- NOTE | 2021-05-14 22:31 | P.HPIM ---
History of Present Illness H&P Date: 05/14/21 Chief Complaint: Left leg redness Patient is a 41-year-old male with a known history of left lower extremity cellulitis, hepatic infarction and currently everyday smoker and alcohol use presents to ER with complaints of left lower extremity redness, swelling and pain. Patient states that redness is getting worse for the past 2 days. He was having chills but did not know that he had fever and admission. Patient has been having issues with cellulitis for the past 3 years. Patient did have cough and cold-like symptoms at home and felt diaphoretic yesterday. Denied any nausea vomiting or abdominal pain or diarrhea. No headache or dizziness or lightheadedness. X-ray of the left tibia-fibula showed no significant abnormality. If there is a clinical suspicion for infection or fasciitis then MRI of the left lower extremity is recommended. Laboratory data showed WBC 24.3 hemoglobin 15.7 and platelets 254 Sodium 137 potassium 3.8 chloride 107 BUN 15 and creatinine 0.83 and urinalysis showed trace protein and small blood. No evidence of infection. Coronavirus PCR not detected. Patient was febrile with T-max 100.7 and tachycardic 112 on admission. Saturating at 99% on room air. Review of Systems Constitutional: Patient did have fever and chills. . No generalized weakness or weight loss. Abdomen: Patient denied nausea vomiting and diarrhea and abdominal pain. Cardiovascular: Patient denies any chest pain or short of breath no palpitations. Respiratory: patient denied any cough or sputum production. No shortness of breath Neurologic: Patient denied any numbness or tingling headache. Musculoskeletal: Patient denies any complaints of joint swelling or deformity.Left leg redness Skin: Negative Psychiatric: Negative Endocrine: No heat or cold intolerance. No recent weight gain. Genitourinary: No dysuria or hematuria. All other 14 point ROS negative except the above Past Medical History Past Medical History: Renal Disease Additional Past Medical History / Comment(s): Hepatic infarction History of Any Multi-Drug Resistant Organisms: None Reported Past Surgical History: Cholecystectomy, Hernia Repair Additional Past Surgical History / Comment(s): 2X Hernia repair and cholecys tectomy,kidney infarction Past Anesthesia/Blood Transfusion Reactions: No Reported Reaction Past Psychological History: No Psychological Hx Reported Smoking Status: Current every day smoker Past Alcohol Use History: Daily Past Drug Use History: None Reported - Past Family History Father Family Medical History: Hypertension Mother History Unknown: Yes Medications and Allergies Home Medications Medication Instructions Recorded Confirmed Type Aspirin 81 mg PO DAILY 30 Days #30 chew 06/11/20 05/14/21 Rx Allergies Allergy/AdvReac Type Severity Reaction Status Date / Time No Known Allergies Allergy Verified 05/14/21 13:18 Physical Exam Vitals: Vital Signs Temp Pulse Pulse Resp BP BP Pulse Ox 05/14/21 16:35 99 F 97 16 128/72 97 05/14/21 15:19 99 F 05/14/21 15:00 97.5 F L 78 20 117/70 97 05/14/21 11:40 100.7 F H 112 H 19 130/78 99 Intake and Output 05/14/21 05/14/21 05/14/21 06:59 14:59 22:59 Other: Weight 79.379 kg PHYSICAL EXAMINATION: Patient is lying in the bed comfortably, no acute distress, awake alert and oriented.. HEENT: Normocephalic. Neck is supple. Pupils reactive. Nostrils clear. Oral cavity is moist. Neck reveals no JVD, carotid bruits, or thyromegaly. CHEST EXAMINATION: Trachea is central. Symmetrical expansion. Lung drew clear to auscultation and percussion. CARDIAC: Normal S1, S2 with no gallops. No murmurs ABDOMEN: Soft. Bowel sounds normal. No organomegaly. No abdominal bruits. Extremities: reveal no edema. No clubbing or cyanosis Neurologically awake, alert, oriented x3 with well-coordinated movements. No focal deficits noted Skin: No rash or skin lesions. Psychiatric: Cooperative. Nonsuicidal Musculoskeletal: No joint swelling or deformity. Normal range of motion.Left leg redness extending from the ankle up to the knee. Swelling and minimal tenderness. Results CBC & Chem 7: 05/14/21 12:54 05/14/21 12:54 Labs: Abnormal Lab Results - Last 24 Hours (Table) 05/14/21 05/14/21 05/14/21 Range/Units 12:54 12:54 12:54 WBC 24.3 H (3.8-10.6) k/uL Neutrophils # 21.8 H (1.3-7.7) k/uL ALT 72 H (4-49) U/L Urine Protein Trace H (Negative) Urine Blood Small H (Negative) Thrombosis Risk Factor Assmnt - DVT/VTE Prophylaxis DVT/VTE Prophylaxis: Pharmacologic Prophylaxis ordered - Choose All That Apply Each Factor Represents 1 point: Age 41-60 years Thrombosis Risk Factor Assessment Total Risk Factor Score: 1 Thrombosis Risk Factor Assessment Level: Low Risk Assessment and Plan Assessment: Acute left lower extremity cellulitis Sepsis secondary to above Athlete's foot Previous history of leg cellulitis History of hepatic infarction DVT prophylaxis with heparin subcu Plan: Patient will be continued on antibiotics in the form of vancomycin. Continue with pain management and DVT prophylaxis. ID will be consulted. Continue to follow closely. Follow-up culture reports.
[2021-05-14] MEDS: VANCOMYCIN 1,500 MG in SODIUM CHLORIDE 0.9% 250 ML IVPB SCH (23:48)
[2021-05-14] MEDS: HEPARIN SODIUM,PORCINE/PF 5,000 UNIT/0.5 ML SYRINGE SQ SCH (23:49)
[2021-05-15] MEDS: HEPARIN SODIUM,PORCINE/PF 5,000 UNIT/0.5 ML SYRINGE SQ SCH ×3 (07:54→16:01)
[2021-05-15] MEDS: VANCOMYCIN 1,500 MG in SODIUM CHLORIDE 0.9% 250 ML IVPB SCH (07:54)
[2021-05-15 09:05] LABS: Basophils # (A) 0.06 X 10*3/uL (0.00-0.10); Basophils % (A) 0.4 %; Eosinophils # (A) 0.08 X 10*3/uL (0.04-0.35); Eosinophils % (A) 0.6 %; HCT 39.9 % (39.6-50.0); HGB 13.7 g/dL (13.0-17.0); Lymphocytes # (A) 1.64 X 10*3/uL (0.90-5.00); Lymphocytes % (A) 12.2 %; MCH 31.1 pg (27.0-32.0); MCHC 34.3 g/dL (32.0-37.0); MCV 90.7 fL (80.0-97.0); Mean Platelet Volume 11.5 fL (9.5-12.2); Monocytes # (A) 1.01 X 10*3/uL (0.20-1.00); Monocytes % (A) 7.5 %; Neutrophils # (A) 10.59 X 10*3/uL (1.80-7.70); Neutrophils % (A) 78.8 %; Platelet Count 130 X 10*3/uL (140-440); RDW 12.2 % (11.5-14.5); WBC 13.45 X 10*3/uL (4.50-10.00)
[2021-05-15 09:57] LABS: African American GFR (CKD) 122.5 (60.0-200.0); BUN/Creat Ratio 11.67 Ratio (12.00-20.00); Blood Urea Nitrogen 10.5 mg/dL (9.0-27.0); Calcium 7.9 mg/dL (8.7-10.3); Non-African American GFR(CKD) 105.7 (60.0-200.0); Potassium 3.9 mmol/L (3.5-5.5)
--- NOTE | 2021-05-15 11:36 | P.CONS ---
History of Present Illness - Reason for Consult Consult date: 05/14/21 left leg cellulitis Requesting physician: Ninfa Parson - Chief Complaint left leg swelling and redness x 1 day - History of Present Illness History of present illness : Patient is 41-year-old male with a past medical history significant for recurrent left lower extremity cellulitis patient presenting to the ER this afternoon for evaluation of left lower ext remity swelling redness along with a fever symptom has been going on for about a day this patient who did have history of recurrent left lower extremity cellulitis and athlete's foot, patient has a history of trauma to the left leg he did have mild L aching pain to the left leg 3-4 of 10 induration with associated swelling redness no purulent or any drainage patient on presentation to the hospital did have a fever 100.7 F patient did have white count of 24.3 kidney function was normal urine was negative hadley PCR was negative x-rays of the leg did not show any bone abnormality patient was started on vancomycin has been admitted to the hospital infectious disease was consulted for further m anagement of antibiotic therapy Review of system: CONSTITUTIONAL: Positive for weakness along with the fever. EYES: No complaint. ENT: No complaint. RESPIRATORY: No complaint. CARDIOVASCULAR: No complaint. GENITOURINARY: No complaint. GASTROINTESTINAL: No complaint. MUSCULOSKELETAL: As per history of present illness. INTEGUMENTARY: As per history of present illness. PSYCHOLOGIC: No complaint. ENDOCRINE: No complaint. NEUROLOGIC: No complaint. Past medical history : Reviewed, documented below Past surgical history : Reviewed, documented below Social history: Reviewed, documented below Medications: Reviewed, as documented below EXAMINATION: Vital sigans= Reviewed and documented below GENERAL DESCRIPTION: Middle-aged male lying in bed, no distress. No tachypnea or accessory muscle of respiration use. HEENT: Shows Pallor , no scleral icterus. Oral mucous membrane is dry. NECK: Trachea central, no thyromegaly. LUNGS: Unlabored breathing. Clear to auscultation anteriorly. No wheeze or crackle. HEART: S1, S2, regular rate and rhythm. ABDOMEN: Soft, no tenderness , guarding or rigidity EXTREMITIES: Left lower extremity with swelling and redness mildly warm and tender to touch and did have evidence of athlete's foot SKIN: No rash, no masses palpable. NEUROLOGICAL: The patient is awake, alert, oriented x3, mood and affect normal. LABS AND RADIOLOGY: Reviewed results see below Assessment : Patient presented to hospital with sepsis in this patient did have fever elevated white count source is acute left lower extremity cellulitis with diffuse swelling redness likely streptococcal disease and at least which likely is possible for these recurrent episodes of cellulitis Plan: 1-patient has been treated about his condition 2-antibiotics will be just to cefazolin 2 g every 8 hour 3-nystatin cream in between toes twice a day We will follow on clinical condition and cultures to further adjust medication if needed Thank you for this consultation we will follow the patient along with you Past Medical History Past Medical History: Renal Disease Additional Past Medical History / Comment(s): Hepatic infarction History of Any Multi-Drug Resistant Organisms: None Reported Past Surgical History: Cholecystectomy, Hernia Repair Additional Past Surgical History / Comment(s): 2X Hernia repair and cholecystectomy,kidney infarction Past Anesthesia/Blood Transfusion Reactions: No Reported Reaction Past Psychological History: No Psychological Hx Reported Smoking Status: Current every day smoker Past Alcohol Use History: Daily Past Drug Use History: None Reported - Past Family History Father Family Medical History: Hypertension Mother History Unknown: Yes Medications and Allergies Home Medications Medication Instructions Recorded Confirmed Type Aspirin 81 mg PO DAILY 30 Days #30 chew 06/11/20 05/14/21 Rx Allergies Allergy/AdvReac Type Severity Reaction Status Date / Time No Known Allergies Allergy Verified 05/14/21 13:18 Physical Exam Vitals: Vital Signs Temp Pulse Pulse Resp BP BP Pulse Ox 05/15/21 07:00 98.3 F 80 18 136/82 97 05/15/21 02:00 100.2 F H 99 17 125/78 96 05/14/21 20:08 98.3 F 84 18 115/72 98 05/14/21 19:43 17 05/14/21 16:35 99 F 97 16 128/72 97 05/14/21 15:19 99 F 05/14/21 15:00 97.5 F L 78 20 117/70 97 05/14/21 11:40 100.7 F H 112 H 19 130/78 99 Intake and Output 05/14/21 05/15/21 05/15/21 22:59 06:59 14:59 Intake Total 118 Balance 118 Intake: Oral 118 Other: # Voids 2 2 Results CBC & Chem 7: 05/15/21 06:01 05/15/21 06:01 Labs: Abnormal Lab Results - Last 24 Hours (Table) 05/14/21 05/14/21 05/14/21 Range/Units 12:54 12:54 12:54 WBC 24.3 H (3.8-10.6) k/uL Plt Count (140-440) X 10*3/uL Immature Gran # (0.00-0.04) X 10*3/uL Neutrophils # 21.8 H (1.3-7.7) k/uL Monocytes # (0.20-1.00) X 10*3/uL Carbon Dioxide (21.6-31.8) mmol/L BUN/Creatinine Ratio (12.00-20.00) Ratio Calcium (8.7-10.3) mg/dL ALT 72 H (4-49) U/L Urine Protein Trace H (Negative) Urine Blood Small H (Negative) 05/15/21 05/15/21 Range/Units 06:01 06:01 WBC 13.45 H (3.8-10.6) k/uL Plt Count 130 L (140-440) X 10*3/uL Immature Gran # 0.07 H (0.00-0.04) X 10*3/uL Neutrophils # 10.59 H (1.3-7.7) k/uL Monocytes # 1.01 H (0.20-1.00) X 10*3/uL Carbon Dioxide 19.0 L (21.6-31.8) mmol/L BUN/Creatinine Ratio 11.67 L (12.00-20.00) Ratio Calcium 7.9 L (8.7-10.3) mg/dL ALT (4-49) U/L Urine Protein (Negative) Urine Blood (Negative)
[2021-05-15] MEDS: NYSTATIN 100,000UNIT/GM CREAM 30 GM TUBE TOPICAL SCH ×2 (13:33→21:06)
[2021-05-15] MEDS ORDERED: VANCOMYCIN TROUGH DUE 1 EACH MISC MISCELLANE ONE (22:00)
--- NOTE | 2021-05-15 23:09 | P.PN ---
Subjective Progress Note Date: 05/15/21 Principal diagnosis: Acute left lower extremity cellulitis Patient is a 41-year-old male with a known history of left lower extremity cellulitis, hepatic infarction and currently everyday smoker and alcohol use presents to ER with complaints of left lower extremity redness, swelling and pain. Patient states that redness is getting worse for the past 2 days. He was having chills but did not know that he had fever and admission. Patient has been having issues with cellulitis for the past 3 years. Patient did have cough and cold-like symptoms at home and felt diaphoretic y esterday. Denied any nausea vomiting or abdominal pain or diarrhea. No headache or dizziness or lightheadedness. X-ray of the left tibia-fibula showed no significant abnormality. If there is a clinical suspicion for infection or fasciitis then MRI of the left lower extremity is recommended. Laboratory data showed WBC 24.3 hemoglobin 15.7 and platelets 254 Sodium 137 potassium 3.8 chloride 107 BUN 15 and creatinine 0.83 and urinalysis showed trace protein and small blood. No evidence of infection. Coronavirus PCR not detected. Patient was febrile with T-max 100.7 and tachycardic 112 on admission. Saturating at 99% on room air. 05/15/2021 Patient is currently resting in the bed. Able to weight-bear on the left lower extremity. Pain did improve compared to yesterday. Still having redness of the lower extremity around the womack area.. No complaints of chest pain or shortness of breath. Patient was having fever at 100.2 T-max last night. No nausea vomiting or abdominal pain or diarrhea. Laboratory data showed showed WBC trending down to 13.45 Bicarb 19 BUN 10.5 and creatinine 0.9 and calcium 7.9 Antibiotics changed to cefazolin. ID is on board. Current medications reviewed. Objective - Vital Signs Vital signs: Vital Signs Temp 98.2 F 05/15/21 15:00 Pulse 97 05/15/21 15:00 Resp 20 05/15/21 15:00 BP 151/93 05/15/21 15:00 Pulse Ox 99 05/15/21 15:00 Intake & Output 05/14/21 05/15/21 05/15/21 18:59 06:59 18:59 Intake Total 722 Balance 722 Weight 79.379 kg Intake: Intake, IV Titration 250 Amount Vancomycin 1,500 mg In 250 Sodium Chloride 0.9% 250 ml @ 125 mls/hr IVPB Q8H [facility] Rx#:[id number] Oral 472 Other: # Voids 2 - Exam PHYSICAL EXAMINATION: Patient is lying in the bed comfortably, no acute distress, awake alert and oriented.. HEENT: Normocephalic. Neck is supple. Pupils reactive. Nostrils clear. Oral cavity is moist. Neck reveals no JVD, carotid bruits, or thyromegaly. CHEST EXAMINATION: Trachea is central. Symmetrical expansion. Lung drew clear to auscultation and percussion. CARDIAC: Normal S1, S2 with no gallops. No murmurs ABDOMEN: Soft. Bowel sounds normal. No organomegaly. No abdominal bruits. Extremities: reveal no edema. No clubbing or cyanosis Neurologically awake, alert, oriented x3 with well-coordinated movements. No focal deficits noted Skin: No rash or skin lesions. Psychiatric: Cooperative. Nonsuicidal Musculoskeletal: No joint swelling or deformity. Normal range of motion.Left leg redness extending from the ankle up to the knee. Swelling and minimal tenderness. - Labs CBC & Chem 7: 05/15/21 06:01 05/15/21 06:01 Labs: Abnormal Lab Results - Last 24 Hours (Table) 05/15/21 05/15/21 Range/Units 06:01 06:01 WBC 13.45 H (4.50-10.00) X 10*3/uL Plt Count 130 L (140-440) X 10*3/uL Immature Gran # 0.07 H (0.00-0.04) X 10*3/uL Neutrophils # 10.59 H (1.80-7.70) X 10*3/uL Monocytes # 1.01 H (0.20-1.00) X 10*3/uL Carbon Dioxide 19.0 L (21.6-31.8) mmol/L BUN/Creatinine Ratio 11.67 L (12.00-20.00) Ratio Calcium 7.9 L (8.7-10.3) mg/dL Assessment and Plan Assessment: Acute left lower extremity cellulitis Sepsis secondary to above Athlete's foot Previous history of leg cellulitis History of hepatic infarction DVT prophylaxis with heparin subcu Plan: Patient will be continued on antibiotics in the form of vancomycinCefazolin. Continue with pain management and DVT prophylaxis. ID will be consulted. Continue to follow closely. Follow-up culture reports.
--- NOTE | 2021-05-16 00:04 | PN ---
PROGRESS NOTE DATE OF SERVICE: 05/15/2021 REASON FOR FOLLOWUP: Left lower extremity cellulitis and athlete's foot. INTERVAL HISTORY: The patient is afebrile. He is breathing comfortably. Denies any chest pain or shortness of breath or cough. No abdominal pain or any worsening pain to the left lower extremity. PHYSICAL EXAMINATION: Blood pressure 149/96, pulse 87, temperature 99.2. He is 99% on room air. General description is a middle-aged male lying in bed in no distress. Respiratory system: Unlabored breathing, clear to auscultation anteriorly. Heart S1, S2. Regular rate and rhythm. Abdomen soft, no tenderness. Left leg swelling and redness has slightly decreased. LABS: Hemoglobin 13.6, white count creatinine 0.9. DIAGNOSTIC IMPRESSION AND PLAN: Patient with acute left lower extremity cellulitis with . Patient to continue with cefazolin and nystatin cream between the toes evaluate the patient tomorrow possible to oral antibiotics on discharge. Continue with supportive care. MMODL / IJN: [id number] /
[2021-05-16] MEDS: HEPARIN SODIUM,PORCINE/PF 5,000 UNIT/0.5 ML SYRINGE SQ SCH ×2 (00:54→07:12)
[2021-05-16 05:34] LABS: African American GFR (CKD) >90 (>60 ml/min/1.73 sqM); Anion Gap 6 mmol/L; Blood Urea Nitrogen 10 mg/dL (9-20); Calcium 8.7 mg/dL (8.4-10.2); Carbon Dioxide 24 mmol/L (22-30); Chloride 107 mmol/L (98-107); Glucose 106 mg/dL (74-99); Non-African American GFR(CKD) >90 (>60 ml/min/1.73 sqM); Potassium 4.2 mmol/L (3.5-5.1); Sodium 137 mmol/L (137-145)
[2021-05-16] MEDS: NYSTATIN 100,000UNIT/GM CREAM 30 GM TUBE TOPICAL SCH (07:12)
[2021-05-16 09:11] VITALS: BP 140/92; PULSE 89; RESP 16; TEMP 98.2
[2021-05-16 11:02] LABS: Basophils # (A) 0.06 X 10*3/uL (0.00-0.10); Basophils % (A) 0.7 %; Eosinophils # (A) 0.19 X 10*3/uL (0.04-0.35); Eosinophils % (A) 2.1 %; HCT 41.6 % (39.6-50.0); HGB 14.5 g/dL (13.0-17.0); Lymphocytes # (A) 2.06 X 10*3/uL (0.90-5.00); Lymphocytes % (A) 23.3 %; MCH 31.5 pg (27.0-32.0); MCHC 34.9 g/dL (32.0-37.0); MCV 90.2 fL (80.0-97.0); Mean Platelet Volume 11.6 fL (9.5-12.2); Monocytes # (A) 1.02 X 10*3/uL (0.20-1.00); Monocytes % (A) 11.5 %; Neutrophils # (A) 5.48 X 10*3/uL (1.80-7.70); Neutrophils % (A) 61.8 %; Platelet Count 163 X 10*3/uL (140-440); RBC 4.61 X 10*6/uL (4.40-5.60); RDW 12.2 % (11.5-14.5); WBC 8.86 X 10*3/uL (4.50-10.00)
--- NOTE | 2021-05-16 14:52 | P.DS ---
Providers Date of admission: 05/14/21 14:21 Expected date of discharge: 05/16/21 Attending physician: Ninfa Parson Consults: 05/14/21 14:32 Consult Physician Urgent Consulting Provider: Tawana Us Consult Reason/Comments: Cellulitis Do you want consulting provider notified?: Yes Primary care physician: Shanice Jean Hospital Course: Final Diagnoses: Sepsis secondary to Acute left lower extremity cellulitis Athlete's foot Previous history of leg cellulitis Peripheral vascular disease Ongoing nicotine dependence, counseled. History of hepatic infarction Hospital course: This a 41-year-old gentleman admitted with sepsis secondary to acute left lower extremity cellulitis and multiple other medical issues. Evaluated by infectious disease, maintained on IV antibiotics with significant clinical improvement. Denies pain of left lower extremity, minimal tenderness, "reports feels like a sunburn ." Afebrile, normal WBC, preliminary blood cultures no growth after 24 hours, renal function stable. Denies chest pain, palpitations or shortness of breath. Denies lightheadedness dizziness or focal deficits. Patient will be discharged home today in a stable condition with guarded prognosis pending final DC recommendations/antibiotics and clearance per ID. The impression and plan of care has been dictated as directed. : I performed a history and examination of this patient, discussed the same with the dictator. I agree with the dictator's note ,documented as a scribe. Any additional findings or plans will be noted. Patient Condition at Discharge: Stable Plan - Discharge Summary Discharge Rx Participant: Yes New Discharge Prescriptions: New Nystatin 100,000Unit/gm Cream [Mycostatin Cream] 1 applic TOPICAL BID #0 gm Acetaminophen Tab [Tylenol] 650 mg PO Q6HR PRN tab PRN Reason: Mild Pain Or Fever > 100.5 Cephalexin [Keflex] 500 mg PO Q6HR 10 Days #40 cap Continue Aspirin 81 mg PO DAILY 30 Days #30 chew Discharge Medication List Aspirin 81 mg PO DAILY 30 Days #30 chew 06/11/20 [Rx] Acetaminophen Tab [Tylenol] 650 mg PO Q6HR PRN tab 05/16/21 [Rx] Cephalexin [Keflex] 500 mg PO Q6HR 10 Days #40 cap 05/16/21 [Rx] Nystatin 100,000Unit/gm Cream [Mycostatin Cream] 1 applic TOPICAL BID #0 gm 05/16/21 [Rx] Follow up Appointment(s)/Referral(s): Reed Hyman MD [STAFF PHYSICIAN] - 05/20/21 10:45 am ([facility].) Patient Instructions/Handouts: Athlete's Foot (GEN), Cellulitis (DC) Activity/Diet/Wound Care/Special Instructions: . Discharge/Stand Alone Forms: Work/School Release Discharge Disposition: HOME SELF-CARE
--- NOTE | 2021-05-16 16:06 | PN ---
PROGRESS NOTE DATE OF SERVICE: 05/16/2021 REASON FOR FOLLOWUP: Acute left lower extremity cellulitis with athlete's foot. INTERVAL HISTORY: The patient is afebrile, breathing comfortably. Overall pain and discomfort to the left leg has decreased. Swelling and redness have decreased as well. No chest pain, shortness of breath or cough. No abdominal pain or diarrhea. PHYSICAL EXAMINATION: Blood pressure 140/92 with a pulse of 89, temperature 98.2. He is 96% on room air. General description is a middle-aged male lying in bed in no distress. Respiratory system: Unlabored breathing, clear to auscultation anteriorly. Heart S1, S2. Regular rate and rhythm. Abdomen soft, no tenderness. Left leg swelling and redness has decreased. LABS: Hemoglobin is 14.8, white count 8.86, creatinine 0.81. DIAGNOSTIC IMPRESSION AND PLAN: Patient with left lower extremity cellulitis with athlete's foot overall improvement with cefazolin. He will finish therapy with oral Keflex, nystatin cream in between the toes and close outpatient followup. MMODL / IJN: [id number] /
== END 2021-05-16 14:00 | disposition home or self-care (01) ==
LOC: EC 11:31 → 6NMEDSUR 14:21
PROVIDERS: ADMIT Family Medicine; ATTEND Family Medicine
DX: A41.9 Sepsis, unspecified organism (principal); L03.116 Cellulitis of left lower limb; F17.200 Nicotine dependence, unspecified, uncomplicated; B35.3 Tinea pedis; I73.9 Peripheral vascular disease, unspecified; Z20.822 Contact with and (suspected) exposure to COVID-19; Z71.6 Tobacco abuse counseling; Z79.82 Long term (current) use of aspirin; Z72.89 Other problems related to lifestyle; Z90.49 Acquired absence of other specified parts of digestive tract; Z87.19 Personal history of other diseases of the digestive system; Z87.448 Personal history of other diseases of urinary system; Z82.49 Family history of ischemic heart disease and other diseases of the circulatory system
CPT/HCPCS: 99285; 96365; 96372 ×2; 96367 ×2; 96361; 96366 ×2; 36415; 80053; 80048 ×2; 83605; 85025 ×3; 80202; 81001; 87040; 87635; 73590; G0378 ×3; J2543; J3370 ×2; J0690 ×2; J1644 ×2; 96368